=== PATIENT | male | born 1965 | race Caucasian/White ===

== ENCOUNTER 2022-05-12 17:50 | Emergency (ER) | payer MEDICAID, SELFPAY ==
[2022-05-12] VITALS (7 sets, daily range): BP systolic 95–199; BP diastolic 58–73; PULSE 75–99; RESP 15–19; TEMP 36.8; O2SAT 92–100; BMI 31.8
[2022-05-12] MEDS: 0.9% Normal Saline 1,000 ML 1000 ML IV (18:22)
[2022-05-12] MEDS: Ketorolac 15 MG/ML Vial IV (18:22)
[2022-05-12 18:26] LABS: Absolute Lymphocyte Count 1.78 X10^3/uL (0.83-4.51); Absolute Neutrophil Count 3.5 X10^3/uL (2.0-7.7); Basophil# 0.08 X10^3/uL; Basophil% 1.3 % (0-1); Eosinophil# 0.18 X10^3/uL; Eosinophils% 2.9 % (0-5); Hematocrit 43.3 % (40-54); Hemoglobin 14.5 g/dL (13.0-16.5); Lymphocyte # 1.78 X10^3/ul (0.83-4.51); Lymphocyte % 28.8 % (19-41); Mean Corp Hgb Conc 33.5 g/dL (32-36); Mean Corpuscular Volume 92.7 fL (80-94); Mean Platelet Vol. 9.2 fl (6.2-12.0); Monocyte# 0.64 X10^3/uL; Monocyte% 10.4 % (0-10); NRBC Flagged by Analyzer 0 % (0-5); Neutrophil # 3.45 X10^3/uL (2.7-7.7); Neutrophil % 55.8 % (47-70); Platelet Count 342 K/mm3 (150-450); RBC Distribution Width CV 11.9 % (11.6-14.6); RBC Distribution Width SD 40.6 fl (35.1-43.9); Red Blood Count 4.67 M/mm3 (4.6-6.2); White Blood Count 6.2 K/mm3 (4.4-11.0)
--- NOTE | 2022-05-12 18:29 | EX.ED.DYSGE1 ---
HPI History of Present Illness Chief Complaint: Dizziness Detail of Chief Complaint: Dizziness equates to lightheadedness Informant: patient Onset/Context/Timing Onset: Hours Context: Sudden Onset Timing: Continuous Quality: Hypotension Location: New antihypertensive meds Current Severity: Severe Maximum Severity: Severe Worsened by: Upright position Relieved by: Nothing Associated Symptoms Associated Symptoms: Nausea, diaphoresis Narrative Narrative: Patient presents by ambulance from doctor's office because of hypotension. Patient blood pressure meds were recently changed. He is presently on lisinopril. He does not know what medicine she was on prior. He attempted to look up his med list on my chart. Those meds have been deleted. Of note patient is on gabapentin, muscle relaxant and hydroxyzine. This may contribute to his hypotension. Patient denies fever, chills night sweats. Patient reports severe migraine headache. Review of outpatient records through [facility] indicates patient does not have migraine headaches. He has cluster headaches. He denies cough, shortness of breath or difficulty breathing. He does report nausea without vomiting or diarrhea. Denies black or maroon-colored stool. He denies urologic symptoms. Patient has a lesion is well-healed on his leg due to melanoma. He has a healing scar right inguinal area where lymph nodes were biopsied. Surgery was November 2021. Prior similar symptoms: No Recent Illness/Hospitalization: Yes PFSH PFSH Medical History Anxiety HTN (hypertension) Hx of testicular cancer Melanoma Home Medications ondansetron 4 mg disintegrating tablet 4 mg PO Q8H PRN PRN Nausea #10 tabs 01/20/ [Rx Last Taken Unknown] duloxetine 30 mg capsule,delayed release sprinkle 30 mg PO DAILY 05/12/22 [History Last Taken Unknown] gabapentin 300 mg capsule 300 mg PO TID 05/12/22 [History Last Taken Unknown] hydroxyzine pamoate 50 mg capsule 50 mg PO DAILY PRN ANXIETY 05/12/22 [History Last Taken Unknown] lisinopril 10 mg tablet 10 mg PO DAILY 05/12/22 [History Last Taken Unknown] methocarbamol 750 mg tablet 750 mg PO TID 05/12/22 [History Last Taken Unknown] prednisone 20 mg tablet 20 mg PO DAILY 05/12/22 [History Last Taken Unknown] Allergy/AdvReac Type Severity Reaction Status Date / Time No Known Allergies Allergy Verified 05/12/22 17:56 Social History (Updated 05/12/22 @ 18:[address] Abundio Lawson MD) household members: significant other Smoking Status: Never smoker alcohol intake: current alcohol intake frequency: a few times a week ROS ROS ED Constitutional Constitutional ED: Denies chills, fever(s), subjective, sweats or weight loss Eyes Eyes: Denies blurry vision, change in vision or diplopia ENT ENT ED: Denies ear pain, rhinorrhea or sore throat Cardiovascular Cardiovascular: Denies chest pain, orthopnea, palpitations, paroxysmal nocturnal dyspnea or racing heartbeat Respiratory/Chest Respiratory/Chest: Denies cough, dyspnea, dyspnea on exertion, orthopnea or paroxysmal nocturnal dyspnea Gastrointestinal Gastrointestinal: Reports nausea; Denies abdominal pain, diarrhea, melena or vomiting Genitourinary Genitourinary ED: Denies dysuria, hematuria or urinary frequency Musculoskeletal Musculoskeletal: Denies arthralgias, back pain, myalgias or neck pain Integumentary Denies rash Neurologic Neurologic: Reports headache(s) and weakness; Denies paresthesias Endocrine Endocrinology: Denies cold intolerance or heat intolerance Hematologic/Lymphatic Hematologic/Lymphatic: Reports systems reviewed and no addt'l complaints, except as documented EXAM Physical Exam Const Vital Signs: 05/12/22 17:51 05/12/22 17:56 05/12/22 18:30 Temperature 98.3 F Temperature Source Oral Pulse Rate 99 Respiratory Rate 18 Respiratory Effort Normal Non-Labored Blood Pressure 95/58 L 103/73 Blood Pressure Mean 70 83 Pulse Ox 95 Oxygen Delivery Method Room Air Oxygen Flow Rate (L/min) 05/12/22 19:00 05/12/22 20:13 05/12/22 21:00 Temperature Temperature Source Pulse Rate 75 82 89 Respiratory Rate 18 19 H 15 Respiratory Effort Blood Pressure 110/60 108/65 131/69 H Blood Pressure Mean 76 79 89 Pulse Ox 94 92 100 Oxygen Delivery Method Room Air Room Air Non-Rebreather Oxygen Flow Rate (L/min) 10 Positive well nourished and well developed General Appearance ED: well developed, NAD and pallor; Negative for cyanotic or diaphoretic HEENT Reports moist mucous membranes HEENT Narrative: Head is atraumatic normocephalic. Ears normal. TMs normal. Nares patent without discharge. Posterior pharynx out erythema or exudate. Mucosa slightly tacky. Eyes PERRL and EOMs intact bilaterally General Eye ED: Negative for pale conjunctiva or scleral icterus Neck no lymphadenopathy, supple and no JVD Resp normal respiratory effort and clear to auscultation bilaterally Cardio regular rate, regular rhythm, S1 normal heart sound, S2 normal heart sound and no murmurs GI normal to inspection, nondistended, normoactive bowel sounds, non-tender, non-distended and no masses; Negative for hepatosplenomegaly Back/Spine no CVA tenderness Lumbar Spine / Lower Back: lumbar spinal tenderness Extremity Negative for normal to inspection Extremity Narrative: Right lower extremity reveals prior incision site where melanoma was removed and biopsy site right inguinal area. Neuro oriented x3, CN's II-XII intact bilaterally and no sensory deficits noted Sensorium / Orientation: alert Psych mental status grossly normal Skin no rashes or lesions noted, no wounds and skin turgor normal Skin Narrative: Slightly diaphoretic. General Skin Exam: pallor; Negative for jaundice MDM MDM MDM Narrative Medical decision making narrative: Patient is hypotensive. Suspect this is due to change in blood pressure meds. We will need to review outside records. Based on review of [facility] patient has history of depression, chronic pain syndrome and generalized anxiety. He does have history of hypertension. He was recently prescribed lisinopril 10 mg. He has had several visits this month at multiple [facility] sites. We will obtain basic blood work to rule out anemia which is unlikely since his conjunctive is pink. Basic metabolic panel to assess renal function, CO2 anion gap. 1 L of normal saline was ordered. Will place on oxygen since she has history of cluster headaches and treat with Toradol. He denies history of renal disease. After reviewing outside labs his most recent creatinine was 1.36. If this was known prior to ordering the Toradol, I would not have ordered the Toradol. Especially since he is hypotensive. Lab Data Attestation: I reviewed the patient's lab results. Lab results narrative: CBC is unremarkable. Basic metabolic panel is marked for an elevated BUN and creatinine at 24 and 1.59. Creatinine is double prior lab result. This could be due to the lisinopril that he was recently placed on and raises concern for renal artery stenosis or the hypotension. The hypotension did respond to fluids. Labs: Laboratory Results - last 24 hr 05/12/22 05/12/22 05/12/22 18:13 18:13 18:13 WBC 6.2 RBC 4.67 Hgb 14.5 Hct 43.3 MCV 92.7 MCH 31.0 MCHC 33.5 RDW Std Deviation 40.6 RDW Coeff of Marlee 11.9 Plt Count 342 MPV 9.2 Immature Gran % (Auto) 0.800 Neut % (Auto) 55.8 Lymph % (Auto) 28.8 Randall % (Auto) 10.4 H Eos % (Auto) 2.9 Baso % (Auto) 1.3 H Absolute Neuts (auto) 3.5 Absolute Lymphs (auto) 1.78 Nucleated RBC % 0 Sodium 137 Potassium 4.2 Chloride 107 Carbon Dioxide 21.0 Anion Gap 9 BUN 24 H Creatinine 1.59 H Estim Creat Clear Calc 49.66 Est GFR (MDRD) Af Amer 59 L Est GFR (MDRD) Non-Af 48 L BUN/Creatinine Ratio 15.1 Glucose 104 Lactic Acid 2.0 Calcium 9.7 EKG Initial EKG: Attestation: I personally reviewed and interpreted this EKG as follows: Interpretation: Sinus Rhythm (Rate is 96. EKG is normal. TN interval is 146 ms. QRS durations 90 ms. QT durations 346 ms. Roscoe is normal. This is essentially unchanged from EKG that was obtained June 25, 2014) Treatment and Re-Evaluation :: Contacted Dr. Mcdermott's office [phone]. Unable to leave voicemail or contact her. We will have patient contact her. He has been instructed to hold the lisinopril. We will have patient contact his primary care physician. He has been instructed to hold his lisinopril. If his renal function does not improve will need further testing to determine if the cause was due to hypotension versus KENNY inhibitor, lisinopril Discharge Plan Triage Chief Complaint: Dizziness ED Provider: Abundio Lawson Dx/Rx/DC Orders Clinical Impression: Acute hypotension, Acute kidney injury, Atypical cluster headache, History of primary hypertension Instructions: ED Low Blood Pressure, All Causes, ED Headache, Cluster Prescriptions: No Action ondansetron 4 MG tablet 4 mg PO Q8H PRN PRN (Reason: Nausea) Qty: 10 0RF prednisone 20 mg Tablet 20 mg PO DAILY hydroxyzine pamoate 50 mg Capsule 50 mg PO DAILY PRN (Reason: ANXIETY) methocarbamol 750 mg Tablet 750 mg PO TID lisinopril 10 mg Tablet 10 mg PO DAILY gabapentin 300 mg Capsule 300 mg PO TID duloxetine 30 mg Capsule, Delayed Rel Sprinkle 30 mg PO DAILY Primary Care Provider: [facility] Doctor,Out of Referrals: [facility] Doctor,Out of [Primary Care Provider] - Activity Restrictions/Additional Instructions: 1. Hold your lisinopril 2. Contact Dr. Mcdermott in the morning for repeat blood work in 3 to 5 days and new blood pressure medicine 3. Tell Dr. Mcdermott your creatinine is 1.59. 4. If symptoms return return to the emergency department Disposition Disposition: Home, Self Care
[2022-05-12 18:42] LABS: Anion Gap 9 (5-15); BUN 24 mg/dL (7-18); BUN/Creat Ratio 15.1 RATIO (10-20); Calcium,Total 9.7 mg/dL (8.5-10.1); Chloride 107 mmol/L (98-107); Creatinine, Serum 1.59 mg/dL (0.70-1.30); EST Glomerular Filtration Rate 48 mL/min (>60); Est Glom Filt Rate - Afr Amer 59 mL/min (>60); Estimated Creatinine Clearance 49.66 ml/min; Glucose 104 mg/dL (74-106); Potassium 4.2 mmol/L (3.5-5.1); Sodium Level 137 mmol/L (136-145)
[2022-05-12 22:21] LABS: Reflex Lactate? Y
== END 2022-05-12 22:29 | disposition home or self-care (01) ==
PROVIDERS: Emergency Provider Emergency Medicine; Visit Provider Emergency Medicine
DX: G44.009 Cluster headache syndrome, unspecified, not intractable (principal); N17.9 Acute kidney failure, unspecified; I10 Essential (primary) hypertension; I95.9 Hypotension, unspecified; Z79.899 Other long term (current) drug therapy; Z79.52 Long term (current) use of systemic steroids
CPT/HCPCS: 80048; 83605; 85025; 93005; 96361; 96374; 99285; J7030; A4216

== ENCOUNTER 2022-12-08 18:23 | Emergency (ER) | payer MEDICAID, SELFPAY ==
[2022-12-08 18:24] VITALS: BP 137/90; PULSE 92; RESP 20; TEMP 36.7; O2SAT 98
[2022-12-08 18:43] VITALS: O2SAT 97
--- NOTE | 2022-12-08 19:23 | CT_ITS ---
INDICATION: trauma EXAMINATION: CT CERVICAL SPINE - CT Spine Cervical W/O Contrast Injection TECHNIQUE: Helically acquired images were obtained of the cervical spine. 2D reformatted images were reviewed. A radiation dose optimization technique was used for this scan. IV Contrast dosage and agent: None. RADIATION DOSAGE (If Supplied By Facility): CTDIvol = ( 35.67 ) mGy, DLP = ( 2798.90 ) mGycm COMPARISON: No relevant prior comparison study available FINDINGS: VERTEBRAE: No fracture or traumatic subluxation. No discrete lytic or blastic abnormality. Normal alignment. Normal craniocervical junction and cervicothoracic junction. DISCS and SPINAL CANAL: Disc heights are preserved. No critical stenosis. Small endplate osteophyte is throughout the cervical spine. On the right, there is at least moderate foraminal narrowing at C3-4 and C4-5. On the left, there is at least mild foraminal narrowing at C3-4. NECK SOFT TISSUES: No prevertebral soft tissue swelling. There is no cervical adenopathy. LUNG APICES: Clear. CT/Spine Cervical without Contras IMPRESSION: No evidence of acute cervical spinal fracture or traumatic malalignment. No suspicious osseous lesions. Electronically Signed: Wil Nguyen MD at 20:34 EDT ,
--- NOTE | 2022-12-08 19:23 | CT_ITS ---
INDICATION: trauma EXAMINATION: CT BRAIN - CT Head or Brain W/O Contrast Injection TECHNIQUE: Multiple axial images were obtained of the head without intravenous contrast. A radiation dose optimization technique was used for this scan. IV Contrast dosage and agent: None. RADIATION DOSAGE (If Supplied By Facility): CTDIvol = ( 35.67 ) mGy, DLP = ( 2798.90 ) mGycm COMPARISON: No relevant prior comparison study available FINDINGS: BRAIN PARENCHYMA: No intra- or extra-axial hemorrhage. No evidence of acute infarct. No intracranial mass or mass effect. There is preservation of the bronson/white matter interface. Posterior fossa structures are unremarkable. No parenchymal abnormality. CSF SPACES: No cerebral volume loss. No hydrocephalus. Basal cisterns are patent. CALVARIUM, SKULL BASE, PARANASAL SINUSES AND MASTOID AIR CELLS: The mastoid air cells and visualized paranasal sinuses are well aerated. The calvarium is intact. No discrete lytic or blastic abnormalities. ORBITS: Both globes, extraocular muscles, optic nerves and retrobulbar fat appear unremarkable. CT/Brain/Head without Contrast IMPRESSION: No acute intracranial finding. Electronically Signed: Wil Nguyen MD at 20:36 EDT ,
--- NOTE | 2022-12-08 19:23 | CT_ITS ---
INDICATION: trauma EXAMINATION: CT THORACIC SPINE - CT Spine Thoracic W/O Contrast Injection TECHNIQUE: Helically acquired images were obtained of the thoracic spine. 2D reformats were reviewed. A radiation dose optimization technique was used for this scan. IV Contrast dosage and agent: None. RADIATION DOSAGE (If Supplied By Facility): CTDIvol = ( 35.67 ) mGy, DLP = ( 2798.90 ) mGycm COMPARISON: No relevant prior comparison study available FINDINGS: VERTEBRAE: No fracture. Vertebral body heights maintained. No discrete lytic or blastic abnormality observed. VERTEBRAL ALIGNMENT: Unremarkable. There is preservation of the normal thoracic kyphosis. DISCS: Disc heights are preserved. Small endplate osteophyte is present throughout the thoracic spine. VISUALIZED THORAX: Calcified granuloma in the right lower lobe. Lungs otherwise clear. Calcified subcarinal lymph nodes. CT/Spine Thoracic without Contras IMPRESSION: * No evidence of acute thoracic spinal fracture or traumatic malalignment. * No suspicious osseous lesions. * Evidence of prior granulomatous disease. Electronically Signed: Wil Nguyen MD at 20:33 EDT ,
[2022-12-08] MEDS: Morphine 4 MG/ML Syringe IV (19:52)
[2022-12-08] MEDS: Ondansetron 4 MG/2 ML Vial IV (19:52)
[2022-12-08 19:55] VITALS: BMI 33.7
[2022-12-08 20:06] LABS: Absolute Lymphocyte Count 1.72 X10^3/uL (0.83-4.51); Absolute Neutrophil Count 4.9 X10^3/uL (2.0-7.7); Basophil# 0.09 X10^3/uL; Basophil% 1.2 % (0-1); Eosinophil# 0.27 X10^3/uL; Eosinophils% 3.5 % (0-5); Hematocrit 39.9 % (40-54); Hemoglobin 13.4 g/dL (13.0-16.5); Lymphocyte # 1.72 X10^3/ul (0.83-4.51); Mean Corp Hgb Conc 33.6 g/dL (32-36); Mean Corpuscular Volume 92.4 fL (80-94); Mean Platelet Vol. 9.2 fl (6.2-12.0); Monocyte# 0.74 X10^3/uL; Monocyte% 9.5 % (0-10); NRBC Flagged by Analyzer 0 % (0-5); Neutrophil # 4.92 X10^3/uL (2.7-7.7); Neutrophil % 62.9 % (47-70); Platelet Count 338 K/mm3 (150-450); RBC Distribution Width SD 40.8 fl (35.1-43.9); Red Blood Count 4.32 M/mm3 (4.6-6.2); White Blood Count 7.8 K/mm3 (4.4-11.0)
[2022-12-08 20:23] LABS: AST(SGOT) 18 U/L (15-37); Alanine Aminotransfer ALT/SGPT 28 U/L (16-61); Alkaline Phosphatase 58 U/L (45-117); Anion Gap 5 (5-15); BUN 17 mg/dL (7-18); BUN/Creat Ratio 17.1 RATIO (10-20); Calcium,Total 9.4 mg/dL (8.5-10.1); Chloride 109 mmol/L (98-107); EST Glomerular Filtration Rate 83 mL/min (>60); Est Glom Filt Rate - Afr Amer 100 mL/min (>60); Estimated Creatinine Clearance 78.03 ml/min; Globulin 4.1 g/dL (2.2-4.2); Glucose 103 mg/dL (74-106); Potassium 4.2 mmol/L (3.5-5.1); Protein, Total 8.1 g/dL (6.4-8.2); Sodium Level 140 mmol/L (136-145)
--- NOTE | 2022-12-08 21:35 | ED.RN ---
pt's s.o. requested ua. pt refused. aware
--- NOTE | 2022-12-08 22:11 | ED.VIS.BACK ---
HPI History of Present Illness Chief Complaint: Fall Narrative Narrative: 57-year-old male presenting with back pain. He has a history of back pain. He relates that about 2 weeks ago he had a fall in his camper. He states this was after mopping it and he slipped and fell on his back. He is complaining some upper back pain and some neck pain. He states that he has intermittent cramping in his arms and legs as well. He did hit his head but did not lose conscious. Is not on anticoagulation. He was seen at [facility] previously for this and they did not do any imaging. He states his pain is returned and is worse. No loss of bladder or bowel control. No saddle anesthesia. Patient is ambulatory. Patient states that the rest of his work-up at [facility] was cardiac related and all of this was negative. [facility] Medical History Anxiety HTN (hypertension) Hx of testicular cancer Melanoma Home Medications ondansetron 4 mg disintegrating tablet 4 mg PO Q8H PRN PRN Nausea #10 tabs 01/20/ [Rx Last Taken Unknown] duloxetine 30 mg capsule,delayed release sprinkle 30 mg PO DAILY 05/12/22 [History Last Taken Unknown] gabapentin 300 mg capsule 300 mg PO TID 05/12/22 [History Last Taken Unknown] hydroxyzine pamoate 50 mg capsule 50 mg PO DAILY PRN ANXIETY 05/12/22 [History Last Taken Unknown] lisinopril 10 mg tablet 10 mg PO DAILY 05/12/22 [History Last Taken Unknown] methocarbamol 750 mg tablet 750 mg PO TID 05/12/22 [History Last Taken Unknown] prednisone 20 mg tablet 20 mg PO DAILY 05/12/22 [History Last Taken Unknown] Allergy/AdvReac Type Severity Reaction Status Date / Time No Known Allergies Allergy Verified 12/08/22 18:24 Social History household members: significant other Smoking Status: Never smoker alcohol intake: current alcohol intake frequency: a few times a week ROS ROS ED Constitutional Constitutional ED: Denies chills, fever(s) or sweats Eyes Eyes: Denies blurry vision or change in vision ENT ENT ED: Denies ear pain or sore throat Cardiovascular Cardiovascular: Denies chest pain, palpitations or racing heartbeat Respiratory/Chest Respiratory/Chest: Denies cough, dyspnea or sputum Gastrointestinal Gastrointestinal: Denies abdominal pain, constipation, diarrhea, nausea or vomiting Genitourinary Genitourinary ED: Denies dysuria, hematuria or urinary frequency Musculoskeletal Musculoskeletal: Reports back pain and neck pain; Denies arthralgias or myalgias Integumentary Denies abscess, Abrasions or rash Neurologic Neurologic: Denies headache(s), paresthesias or weakness Psychiatric Psychiatric: Denies anxiety, depression, suicidal ideation or suicidal thoughts Endocrine Endocrinology: Denies polydipsia or polyuria EXAM Physical Exam Const Vital Signs: 12/08/22 18:24 12/08/22 18:43 Temperature 98.1 F Temperature Source Temporal Pulse Rate 92 Respiratory Rate 20 H Respiratory Effort Normal Non-Labored Respiratory Depth Normal Respiratory Pattern Normal Blood Pressure 137/90 H Blood Pressure Mean 105 Pulse Ox 98 97 Oxygen Delivery Method Room Air Room Air Positive well nourished General Appearance ED: NAD HEENT Reports moist mucous membranes Resp normal respiratory effort and clear to auscultation bilaterally Auscultation: Negative for rales, rhonchi or wheezes Cardio regular rate and regular rhythm GI normal to inspection, nondistended, normoactive bowel sounds Back/Spine Cervical Spine: cervical spine tenderness Cervical Spine Tenderness Details: C7 and T1 Thoracic Spine / Upper Back: paraspinal muscle tenderness Extremity normal to inspection Neuro oriented x3 and no sensory deficits noted Sensorium / Orientation: alert Motor Exam: strength 5/5 throughout Psych mental status grossly normal Skin no rashes or lesions noted and no wounds MDM MDM MDM Narrative Medical decision making narrative: Patient presenting with upper back pain. On examination he is tender about the level of the C7-T1. No obvious deformities. Patient's pain seems to radiate into the medial aspect of his left arm more than his right arm but does seem to be into his pinky fingers bilaterally. He states that he has pain with palpation of the right and left elbows but there is full range of motion. No evidence of bruising or rash. Compartments are soft. Radial pulses 2+. Sensation and motor intact. Given the patient's pain an IV line was established. Is given morphine and Zofran. Obtain basic lab work including CBC and CMP which were normal. Differential includes compression fracture, C-spine fracture, thoracic spine fracture, cervical radiculopathy, intracranial hemorrhage, skull fracture.. CT of the brain was obtained and is negative. CT cervical spine, thoracic spine are also negative for acute findings. Given this I will have the patient follow-up with orthopedics. Patient counseled on findings. He requests narcotic pain medication for home. He told me that his primary care provider had increased his Cymbalta to help him with his pain which makes me think that he has had some chronic pain. I looked in the medical record and I see that they have documented he increased his Cymbalta himself and then told him he was doing it. He also increased his gabapentin. He was recently seen at [facility] and had been prescribed tramadol after requesting this for pain. His medical record also shows chronic back pain, chronic pain, opioid dependence at this point I do not feel comfortable prescribing him narcotics for home. Patient does have muscle relaxers and states he has Zanaflex and Lidoderm patches. He requested oxycodone prior to discharge and this was given. Return precautions discussed. He will follow-up with his PCP in [place]. Impression: 1. Fall 2. Cervical strain 3. Thoracic strain Lab Data Attestation: I reviewed the patient's lab results. Labs: Laboratory Results - last 24 hr 12/08/22 19:57 WBC 7.8 RBC 4.32 L Hgb 13.4 Hct 39.9 L MCV 92.4 MCH 31.0 MCHC 33.6 RDW Std Deviation 40.8 RDW Coeff of Marlee 12.0 Plt Count 338 MPV 9.2 Immature Gran % (Auto) 0.900 Neut % (Auto) 62.9 Lymph % (Auto) 22.0 Starke % (Auto) 9.5 Eos % (Auto) 3.5 Baso % (Auto) 1.2 H Absolute Neuts (auto) 4.9 Absolute Lymphs (auto) 1.72 Nucleated RBC % 0 Sodium 140 Potassium 4.2 Chloride 109 H Carbon Dioxide 26.0 Anion Gap 5 BUN 17 Creatinine 1.00 Estim Creat Clear Calc 78.03 Est GFR (MDRD) Af Amer 100 Est GFR (MDRD) Non-Af 83 BUN/Creatinine Ratio 17.1 Glucose 103 Calcium 9.4 Total Bilirubin 0.20 AST 18 ALT 28 Alkaline Phosphatase 58 Total Protein 8.1 Albumin 4.0 Globulin 4.1 Albumin/Globulin Ratio 1.0 Radiography Diagnostic Testing: Clinical Impression(s) from Imaging Studies Brain CT 12/08/22 19:23 IMPRESSION: No acute intracranial finding. Electronically Signed: Wil Nguyen MD at 20:36 EDT , Cervical Spine CT 12/08/22 19:23 IMPRESSION: No evidence of acute cervical spinal fracture or traumatic malalignment. No suspicious osseous lesions. Electronically Signed: Wil Nguyen MD at 20:34 EDT , Thoracic Spine CT 12/08/22 19:23 IMPRESSION: * No evidence of acute thoracic spinal fracture or traumatic malalignment. * No suspicious osseous lesions. * Evidence of prior granulomatous disease. Electronically Signed: Wil Nguyen MD at 20:33 EDT , Discharge Plan Triage Chief Complaint: Fall ED Provider: Gabe Schulte Dx/Rx/DC Orders Instructions: ED Back Pain (Acute or Chronic), ED Radiculopathy, Cervical Prescriptions: No Action ondansetron 4 MG tablet 4 mg PO Q8H PRN PRN (Reason: Nausea) Qty: 10 0RF prednisone 20 mg Tablet 20 mg PO DAILY hydroxyzine pamoate 50 mg Capsule 50 mg PO DAILY PRN (Reason: ANXIETY) methocarbamol 750 mg Tablet 750 mg PO TID lisinopril 10 mg Tablet 10 mg PO DAILY gabapentin 300 mg Capsule 300 mg PO TID duloxetine 30 mg Capsule, Delayed Rel Sprinkle 30 mg PO DAILY Primary Care Provider: [facility] Doctor,Out of Referrals: [facility] Doctor,Out of [Primary Care Provider] - Disposition Disposition: Home, Self Care
[2022-12-08] MEDS: oxyCODONE 5 MG Tablet PO (22:43)
[2022-12-08 22:44] VITALS: BP 96/54; RESP 18
== END 2022-12-08 22:52 | disposition home or self-care (01) ==
PROVIDERS: Emergency Provider Student in an Organized Health Care Education/Training Program; Visit Provider Student in an Organized Health Care Education/Training Program
DX: S16.1XXA Strain of muscle, fascia and tendon at neck level, initial encounter (principal); F11.20 Opioid dependence, uncomplicated; M79.602 Pain in left arm; G89.29 Other chronic pain; I10 Essential (primary) hypertension; S29.019A Strain of muscle and tendon of unspecified wall of thorax, initial encounter; W01.0XXA Fall on same level from slipping, tripping and stumbling without subsequent striking against object, initial encounter
CPT/HCPCS: 70450; 72125; 72128; 80053; 85025; 96374; 96375; 99282; J2405

== ENCOUNTER 2023-01-05 16:46 | Emergency (ER) | payer MEDICAID, SELFPAY ==
[2023-01-05 16:47] VITALS: BP 162/97; PULSE 95; RESP 17; TEMP 36.4; O2SAT 98; BMI 34.3
--- NOTE | 2023-01-05 17:41 | EDS_ITS ---
HPI HPI - Fall History of Present Illness Chief Complaint: Fall PFSH PFSH Medical History (Updated 01/05/23 @ 17:41 by Kellee Fishman) Anxiety Fall HTN (hypertension) Hx of testicular cancer Melanoma Home Medications ondansetron 4 mg disintegrating tablet 4 mg PO Q8H PRN PRN Nausea #10 tabs 01/20/15 [Rx Last Taken Unknown] duloxetine 30 mg capsule,delayed release sprinkle 60 mg PO DAILY 05/12/22 [History Last Taken Unknown] gabapentin 300 mg capsule 300 mg PO TID 05/12/22 [History Last Taken Unknown] lisinopril 10 mg tablet 20 mg PO DAILY 05/12/22 [History Last Taken Unknown] naloxone 4 mg/actuation nasal spray intranasal 01/05/23 [History Last Taken Unknown] Allergy/AdvReac Type Severity Reaction Status Date / Time No Known Allergies Allergy Verified 12/08/22 18:24 Social History household members: significant other Smoking Status: Never smoker alcohol intake: current alcohol intake frequency: a few times a week EXAM Physical Exam Const Vital Signs: 01/05/23 16:47 01/05/23 17:41 01/05/23 20:54 Temperature 97.5 F L Temperature Source Temporal Pulse Rate 95 Respiratory Rate 17 Respiratory Effort Normal Non-Labored Respiratory Depth Normal Respiratory Pattern Normal Blood Pressure 162/97 H 148/101 H Blood Pressure Mean 118 116 Pulse Ox 98 Oxygen Delivery Method Room Air MDM MDM MDM Narrative Medical decision making narrative: HISTORY OF PRESENT ILLNESS: 57-year-old male here for frequent falls. Notes he seen numerous doctors recently for multiple falls. States his last fall was Wednesday, 2 days ago. States he did hit his head. States he experiences pain in his right arm, back and right leg. He further states he has had months of lightheadedness upon standing. Denies any chest pain, shortness of breath. The patient denies recent surgery in the last 4 weeks or immobilization in the last 3 days, denies previous diagnosis of DVT or PE, hemoptysis, unilateral leg swelling or malignancy with treatment the last 6 months or palliative. No estrogen use noted. Does note hitting his head during one of the falls. Denies taking blood thinners. Denies any focal numbness or weakness. He does not abdominal pain as well. No vomiting, melena, hematochezia. REVIEW OF SYSTEMS: Pertinent positives: Head trauma, right arm, back and right leg pain Pertinent negatives: Focal deficits PHYSICAL EXAM: Nursing triage notes reviewed, Vital signs reviewed Primary Survey Airway: Intact Breathing: Bilateral breath sounds Circulation: Palpable bilateral femorals, Palpable bilateral radial, Palpable bilateral DP and Palpable bilateral PT Disability / Spine precautions GCS Score: Eye Openin Verbal Response: 5 Motor Response: 6 Secondary Survey Constitutional: Please see MDM Head: Atraumatic, Midface stable, NO jaw malocclusion, No Cephalohematoma, and No Lacerations noted Eye: Pupils equal round and reactive to light, Extraocular muscles intact and No periorbital ecchymosis or stepoff, no evidence of entrapment ENT: Oropharynx clear, no lacerations, no hemotympanum, no raccoon eyes or means sign Cervical spine / Neck: No cervical spine bony tenderness, crepitance, or stepoff deformity Trachea midline Lungs: Clear to auscultation, No asymmetric rise and No crepitus, no flail chest Cardiac: Regular rate and rhythm and No murmurs Abdomen: Soft, Nontender and No rebound Pelvis: Pelvis stable to compression : No evidence of genital injury Back: No midline bony tenderness to thoracic/lumbar/sacral spines Neuro: At baseline, intact strength and sensation in bilateral upper and lower extremities. 2+ patellar reflexes bilaterally. Extremities: NO gross Deformities Psych: Normal affect Nursing triage notes reviewed, Vital signs reviewed MEDICAL DECISION MAKING: Chief Complaint: Fall External records reviewed: Seen recently for similar complaints in November 2022 imaging reviewed: CT scan of the thoracic spine shows no evidence of thoracic spinal fracture or malalignment. CT of the cervical spine shows no acute traumatic injuries. CT scan of the head showed no evidence of intracranial normality Factors affecting care: hypertension, posterior headaches Social determinants of health: none History obtained from others: none Consults: none [facility] Narrative: Was hemodynamically stable, afebrile, nontoxic-appearing. Abdominal exam without obvious herniation, masses or peritoneal signs. I considered the following differential diagnosis: Arrhythmia, anemia, electrolyte disturbance, pneumonia ALL IMAGES (IF OBTAINED) HAVE BEEN PERSONALLY REVIEWED AND INTERPRETED BY MYSELF. EKG with normal sinus rhythm, normal axis, normal intervals, no STEMI High-sensitivity troponin is negative, no evidence of myocardial ischemia CBC without leukocytosis to suggest systemic inflammation, severe anemia, no thrombocytopenia. BMP without evidence of significant electrolyte abnormalities, no anion gap, no acute kidney injury. LFTs show no evidence of hepatobiliary pathology. CT scan of the head shows no evidence of intracranial normality CT scan lumbar spine shows evidence of bony fracture I have personally reviewed the patient's chest x-ray. Chest x-ray is unremarkable for pulmonary edema, pneumothorax, pneumonia or focal cardiopulmonary abnormality. X-ray of the right femur was read interpreted myself shows no evidence of obvious bony fracture or dislocation. X-ray of the humerus interpreted by myself shows no evidence of bony fracture CT scan abdomen pelvis shows fat-containing inguinal hernia. There is no white count there is no fever there is overlying skin changes low suspicion for acute incarceration at this time. Given outpatient general surgery follow-up. The synthesis of the patient's history, physical exam, labs/images suggest no acute intracranial abnormality, no acute bony abnormality, no metabolic or cardiovascular precipitating cause of the patient's lightheadedness upon standing. The patient is suffering orthostasis of unknown origin however there is no acute life or limb threatening pathology hat can be identified here in the ED. Encourage increase fluid intake and PCP, General surgery follow-up for further outpatient evaluation. The patient and/or family, caregivers express understanding. The patient and/or family, caregivers agrees with the plan. Shared decision making: I will have a discussion with the patient and or visitors regarding risk/benefits of further testing or admission. They will be made aware of of the risk/benefits inherent in this decision they will be given the opportunity to voice understanding. Total critical care time today provided was at least 0 minutes. This excludes separately billable procedures. Critical care time (if documented) is secondary to the patient having high probability of clinically significant/life threatening deterioration in the patient's condition which required my urgent i ntervention. Impression: 1. Frequent falls 2. Orthostasis Dispo: Discharge Lab Data Labs: Laboratory Results - last 24 hr 01/05/23 18:20 WBC 8.4 RBC 4.45 L Hgb 13.7 Hct 41.2 MCV 92.6 MCH 30.8 MCHC 33.3 RDW Std Deviation 41.8 RDW Coeff of Marlee 12.4 Plt Count 353 MPV 9.4 Immature Gran % (Auto) 1.100 H Neut % (Auto) 65.3 Lymph % (Auto) 20.7 [place] % (Auto) 8.1 Eos % (Auto) 3.7 Baso % (Auto) 1.1 H Absolute Neuts (auto) 5.5 Absolute Lymphs (auto) 1.74 Nucleated RBC % 0 Sodium 138 Potassium 4.1 Chloride 110 H Carbon Dioxide 22.0 Anion Gap 6 BUN 21 H Creatinine 1.13 Estim Creat Clear Calc 69.06 Est GFR (MDRD) Af Amer 87 Est GFR (MDRD) Non-Af 72 BUN/Creatinine Ratio 18.6 Glucose 106 Calcium 9.3 Total Bilirubin 0.30 Direct Bilirubin 0.08 AST 24 ALT 44 Alkaline Phosphatase 66 Troponin I High Sens < 3 L Total Protein 8.3 H Albumin 4.0 Globulin 4.3 H Radiography Diagnostic Testing: Clinical Impression(s) from Imaging Studies Abdomen/Pelvis CT 01/05/23 18:03 IMPRESSION: Small right inguinal fat-containing hernia with inflammatory changes which could indicate incarceration. No other acute abnormalities. Hepatic steatosis. Electronically Signed: Lanre Huerta MD at 20:01 EST Reading Location ID and State: [employer] [facility] [employer] Tel , Service support , Brain CT 01/05/23 18:03 IMPRESSION: No acute intracranial abnormality. Electronically Signed: Lanre Huerta MD at 19:29 EST Reading Location ID and State: [employer] [facility] [employer] Tel , Service support , Lumbar Spine CT 01/05/23 18:06 IMPRESSION: No evidence of acute lumbar spinal fracture or spondylolisthesis. Electronically Signed: Lanre Huerta MD at 19:34 EST Reading Location ID and State: [employer] [facility] [employer] Tel , Service support , Chest X-Ray 01/05/23 19:10 IMPRESSION: No acute radiographic abnormalities. Electronically Signed: Lanre Huerta MD at 19:47 EST Reading Location ID and State: [employer] [facility] [employer] Tel , Service support , Femur X-Ray 01/05/23 19:10 IMPRESSION: No acute radiographic abnormalities. Electronically Signed: Lanre Huerta MD at 19:54 EST , Humerus X-Ray 01/05/23 19:10 IMPRESSION: No acute radiographic abnormalities. Electronically Signed: Lanre Huerta MD at 19:47 EST , Discharge Plan Triage Chief Complaint: Fall ED Provider: Pio Sainz Dx/Rx/DC Orders Instructions: ED FALL-from [id number] Prescriptions: No Action ondansetron 4 MG tablet 4 mg PO Q8H PRN PRN (Reason: Nausea) Qty: 10 0RF lisinopril 10 mg Tablet 20 mg PO DAILY gabapentin 300 mg Capsule 300 mg PO TID duloxetine 30 mg Capsule, Delayed Rel Sprinkle 60 mg PO DAILY naloxone 4 mg/actuation spray,non-aerosol INTRANASAL Patient Comments: ADMINISTER A SINGLE SPRAY INTRANASALLY INTO ONE NOSTRIL. CALL 911. MAY REPEAT X 1. Stand Alone Forms: ED Work / School Excuse Primary Care Provider: Kelli Holman Referrals: Kenn Luna MD [Med Staff - Active Staff] - Alexa Conklin MD [Med Staff - Learning Manager] - Activity Restrictions/Additional Instructions: Thank you for trusting us with your care today! Please take Tylenol (2 pills, 650 mg), ibuprofen (2 pills, 400 mg) every 6 hours as needed for pain and fever control. Please return to the emergency department if your symptoms change or worsen. Please follow with your primary care physician for further outpatient evaluation and management. Disposition Disposition: Home, Self Care Discharge Date/Time: 01/05/23 20:55
--- NOTE | 2023-01-05 18:03 | CT_ITS ---
EXAMINATION : Head CT w/out contrast HISTORY : fall, head trauma COMPARISON : None. TECHNIQUE : Multiple contiguous axial images were obtained from the skull base to the vertex without intravenous contrast. A radiation dose optimization technique was used for this scan. FINDINGS : The ventricles and sulci are normal in size. There is no evidence for acute intracranial hemorrhage, mass effect, or midline shift. There is no extra-axial fluid collection. There is normal goodman-white differentiation, without CT evidence of acute ischemia or infarct. The skull base and calvarium are unremarkable. The orbits are unremarkable. The paranasal sinuses are clear. The mastoid air cells are well-aerated. The soft tissues are unremarkable. CT/Brain/Head without Contrast IMPRESSION: No acute intracranial abnormality. Electronically Signed: Lanre Huerta MD at 19:29 EST ,
--- NOTE | 2023-01-05 18:03 | CT_ITS ---
INDICATION: lower abdominal pain after fall EXAMINATION: CT Abdomen And Pelvis W/O Contrast Injection TECHNIQUE: Helically acquired images were obtained of the abdomen and pelvis without the use of IV contrast. A radiation dose optimization technique was used for this scan. Oral contrast: None. COMPARISON: None FINDINGS: Evaluation of the solid organs and vascular structures is limited without intravenous contrast. Visualized lung bases: Unremarkable Liver: Diffusely hypodense consistent with fatty liver. Gallbladder: Unremarkable Spleen: Unremarkable Pancreas: Unremarkable Adrenal Glands: Unremarkable Kidneys: Unremarkable Vasculature: Unremarkable GI Tract: Unremarkable Lymphadenopathy: None Peritoneum: No ascites. Bladder: Unremarkable Reproductive organs: Unremarkable Bones/Soft tissues: Mild scattered degenerative changes of the visualized spine. Small right inguinal fat-containing hernia with fat stranding. CT/Abdomen/Pelvis without Cont IMPRESSION: Small right inguinal fat-containing hernia with inflammatory changes which could indicate incarceration. No other acute abnormalities. Hepatic steatosis. Electronically Signed: Lanre Huerta MD at 20:01 EST ,
--- NOTE | 2023-01-05 18:04 | EKG12_ITS ---
Test Reason : DYSRHYTHMIA Blood Pressure : / mmHG Vent. Rate : 092 BPM Atrial Rate : 092 BPM P-R Int : 144 ms QRS Dur : 084 ms QT Int : 356 ms P-R-T Axes : 012 023 041 degrees QTc Int : 440 ms Normal sinus rhythm Normal ECG Confirmed by GENESIS MCKEON, TODD ([id number]), editor greeting card DAFNE OWENS ([id number]) on 01/07/2023 9:21:49 AM Referred By: Confirmed By:TODD HURTADO MD
--- NOTE | 2023-01-05 18:06 | CT_ITS ---
INDICATION: back pain EXAMINATION: CT LUMBAR SPINE - CT Spine Lumbar W/O Contrast Injection TECHNIQUE: Helically acquired images were obtained of the lumbar spine. 2D reformats were reviewed. A radiation dose optimization technique was used for this scan. IV Contrast dosage and agent: None. COMPARISON: None. FINDINGS: VERTEBRAE: No fracture or traumatic subluxation. No discrete lytic or blastic abnormality observed. Normal alignment. DISCS and SPINAL CANAL: Disc heights are preserved. No critical stenosis. VISUALIZED ABDOMEN: Visualized abdominal aorta is not dilated. There is no retroperitoneal adenopathy. CT/Spine Lumbar without Contrast IMPRESSION: No evidence of acute lumbar spinal fracture or spondylolisthesis. Electronically Signed: Lanre Huerta MD at 19:34 EST ,
[2023-01-05 18:27] LABS: Absolute Lymphocyte Count 1.74 X10^3/uL (0.83-4.51); Absolute Neutrophil Count 5.5 X10^3/uL (2.0-7.7); Basophil# 0.09 X10^3/uL; Basophil% 1.1 % (0-1); Eosinophil# 0.31 X10^3/uL; Eosinophils% 3.7 % (0-5); Hematocrit 41.2 % (40-54); Hemoglobin 13.7 g/dL (13.0-16.5); Lymphocyte # 1.74 X10^3/ul (0.83-4.51); Lymphocyte % 20.7 % (19-41); Mean Corp Hgb Conc 33.3 g/dL (32-36); Mean Corpuscular Hgb 30.8 pg (27.0-32.0); Mean Corpuscular Volume 92.6 fL (80-94); Mean Platelet Vol. 9.4 fl (6.2-12.0); Monocyte# 0.68 X10^3/uL; Monocyte% 8.1 % (0-10); NRBC Flagged by Analyzer 0 % (0-5); Neutrophil # 5.49 X10^3/uL (2.7-7.7); Neutrophil % 65.3 % (47-70); Platelet Count 353 K/mm3 (150-450); RBC Distribution Width CV 12.4 % (11.6-14.6); RBC Distribution Width SD 41.8 fl (35.1-43.9); Red Blood Count 4.45 M/mm3 (4.6-6.2); White Blood Count 8.4 K/mm3 (4.4-11.0)
[2023-01-05] MEDS: 0.9% Normal Saline (1000mL) 1,000 ML 1000 ML IV (18:42)
[2023-01-05 19:05] LABS: AST(SGOT) 24 U/L (15-37); Alanine Aminotransfer ALT/SGPT 44 U/L (16-61); Alkaline Phosphatase 66 U/L (45-117); Anion Gap 6 (5-15); BUN 21 mg/dL (7-18); BUN/Creat Ratio 18.6 RATIO (10-20); Bilirubin, Direct 0.08 mg/dL (0.00-0.30); Calcium,Total 9.3 mg/dL (8.5-10.1); Chloride 110 mmol/L (98-107); Creatinine, Serum 1.13 mg/dL (0.70-1.30); EST Glomerular Filtration Rate 72 mL/min (>60); Est Glom Filt Rate - Afr Amer 87 mL/min (>60); Estimated Creatinine Clearance 69.06 ml/min; Globulin 4.3 g/dL (2.2-4.2); Glucose 106 mg/dL (74-106); Potassium 4.1 mmol/L (3.5-5.1); Protein, Total 8.3 g/dL (6.4-8.2); Sodium Level 138 mmol/L (136-145); Troponin-I HS < 3 pg/mL (3.0-78.0)
--- NOTE | 2023-01-05 19:10 | RAD_ITS ---
INDICATION: lightheadedness, cough EXAMINATION/TECHNIQUE: X-RAY - XR Chest 1 View COMPARISON: None. FINDINGS: The lungs are clear. The cardiomediastinal silhouette is unremarkable. No pleural effusion or pneumothorax. No acute osseous abnormalities. RAD/Chest 1 View (Portable) IMPRESSION: No acute radiographic abnormalities. Electronically Signed: Lanre Huerta MD at 19:47 EST ,
--- NOTE | 2023-01-05 19:10 | RAD_ITS ---
INDICATION: leg pain EXAMINATION/TECHNIQUE: X-RAY - RIGHT XR Femur Min 2 Views COMPARISON: None. FINDINGS: No acute fracture or malalignment. No blastic or lytic lesions. Mild degenerative changes. The soft tissues are unremarkable. RAD/Femur Min 2 Views IMPRESSION: No acute radiographic abnormalities. Electronically Signed: Lanre Huerta MD at 19:54 EST ,
--- NOTE | 2023-01-05 19:10 | RAD_ITS ---
INDICATION: arm pain after fall EXAMINATION/TECHNIQUE: X-RAY - RIGHT XR Humerus Min 2 Views COMPARISON: None. FINDINGS: No acute fracture or malalignment. No blastic or lytic lesions. No degenerative changes are seen. The soft tissues are unremarkable. RAD/Humerus min 2 Views IMPRESSION: No acute radiographic abnormalities. Electronically Signed: Lanre Huerta MD at 19:47 EST ,
[2023-01-05] MEDS: Acetaminophen 325 MG Tablet PO (19:24)
[2023-01-05] MEDS: Ketorolac 15 MG/ML Vial IV (20:34)
[2023-01-05 20:54] VITALS: BP 148/101
== END 2023-01-05 20:55 | disposition home or self-care (01) ==
PROVIDERS: Emergency Provider Emergency Medicine; PCP Nurse Anesthetist, Certified Registered; Visit Provider Emergency Medicine
DX: R29.6 Repeated falls (principal); I10 Essential (primary) hypertension; Z91.81 History of falling; M79.601 Pain in right arm; M79.604 Pain in right leg; M54.9 Dorsalgia, unspecified; R51.9 Headache, unspecified; R42 Dizziness and giddiness
CPT/HCPCS: 70450; 71045; 72131; 73060; 73552; 74176; 80048; 80076; 84484; 85025; 93005; 96361; 96374; 99284; J7030; A4216

== ENCOUNTER 2023-04-04 13:16 | Emergency (ER) | payer MEDICAID, SELFPAY ==
[2023-04-04 13:17] VITALS: PULSE 109; RESP 16; TEMP 36.2; O2SAT 98
--- NOTE | 2023-04-04 13:28 | RAD_ITS ---
STUDY: X-RAY - LUMBAR SPINE REASON FOR EXAM: Male, 57 years old. Pain TECHNIQUE: 2 view(s) of the lumbar spine were obtained. COMPARISON: None FINDINGS: Normal lumbar lordosis. There is no substantial scoliosis. There is a normal alignment of the vertebrae. Normal vertebral bodies and endplates. Normal disc space heights. There is multilevel facet hypertrophy in the lower lumbar spine. The soft tissue structures are unremarkable. RAD/Lumbar Spine 2 or 3 Views IMPRESSION: No acute fracture or subluxation. Electronically Signed: Shaggy Tsang MD at 14:20 EST ,
--- NOTE | 2023-04-04 13:28 | RAD_ITS ---
STUDY: X-RAY - RIGHT SHOULDER REASON FOR EXAM: Male, 57 years old. Trauma TECHNIQUE: 3 view(s) of the shoulder. COMPARISON: None. FINDINGS: Normal glenohumeral articulation. Normal acromioclavicular joint. Normal acromion. Normal humeral head and visualized proximal humerus. The soft tissue structures are unremarkable. Normal visualized pulmonary apex. RAD/Shoulder min 2 Views IMPRESSION: Normal x-ray examination of the shoulder. Electronically Signed: Shaggy Tsang MD at 14:21 EST ,
--- NOTE | 2023-04-04 13:30 | ED.VIS.FALL ---
HPI HPI - Fall History of Present Illness Chief Complaint: Fall Narrative Narrative: 57-year-old male past medical history of arthritis, states he has been falling frequently, states he was recently diagnosed with an L4 compression fracture which has been there for a while . He is supposed to see a surgeon in [facility] next week. He states that on , 4 days ago, he fell on 2 steps to his cam bur. He fell onto his right shoulder and is having mild right shoulder pain, but states that his low back pain is increasing. He crawled into bed, and is continuing his muscle relaxers and pain medications that he currently takes for chronic pain. Additionally, he relays a history remotely of cancer and states he had leftover Percocet . He had been having them and taking them, but now has run out of his narcotic pain medication. He states that he was informed on last Wednesday, approximately 7 days ago, that he had an L4 fracture. He called his surgeon and was told that nothing could be written for him until he is seen on Wednesday, 3 days from now. Patient denies any fevers or chills, no loss of bowel or bladder, but states the pain in his back is getting worse, and he is having shoulder pain that is worse with movement. As far as hand dominance is concerned, he states he is ambidextrous but mostly uses his left hand. While he states he may have hit his head, he denies loss of consciousness. [facility] Medical History Anxiety Fall HTN (hypertension) Hx of testicular cancer Melanoma Home Medications ondansetron 4 mg disintegrating tablet 4 mg PO Q8H PRN PRN Nausea #10 tabs 01/20/15 [Rx Last Taken Unknown] duloxetine 30 mg capsule,delayed release sprinkle 60 mg PO DAILY 05/12/22 [History Last Taken Unknown] gabapentin 300 mg capsule 300 mg PO TID 05/12/22 [History Last Taken Unknown] lisinopril 10 mg tablet 20 mg PO DAILY 05/12/22 [History Last Taken Unknown] naloxone 4 mg/actuation nasal spray intranasal 01/05/23 [History Last Taken Unknown] oxycodone-acetaminophen 5 mg-325 mg tablet (Percocet) 1 tab PO Q8H PRN pain 3 days #10 tabs 04/04/23 [Rx Last Taken Unknown] Allergy/AdvReac Type Severity Reaction Status Date / Time No Known Allergies Allergy Verified 04/04/23 13:19 Social History household members: significant other Smoking Status: Never smoker alcohol intake: current alcohol intake frequency: a few times a week ROS ROS ED ROS Narrative Constitutional: No fever, no chills. HEENT: No sore throat. No neck pain. No loss of vision. No rhinorrhea. Cardiovascular: No chest pain. No palpitations. No pedal edema. Respiratory: No cough, no shortness of breath. Abdominal: No abdominal pain. No nausea. No vomiting. Genitourinary: No dysuria. No hematuria. Musculoskeletal: No myalgias. Right shoulder pain worse with movement, low back pain. Neurologic: No headaches. No dizziness. No lightheadedness. Skin: No rash. No change in color. Psychiatric: No depression. No anxiety. EXAM Physical Exam Narrative Exam Narrative: Afebrile. Vital signs noted. HEENT: Normocephalic. Atraumatic. PERRL, EOMI. Neck soft and supple. No point tenderness or step off. Cardiovascular: Regular rate and rhythm. No murmurs, rubs, or gallops appreciated. Respiratory: No tachypnea. Lungs clear to auscultation bilaterally. Gastrointestinal: Abdomen soft, nontender, with normoactive bowel sounds. No rebound or guarding. Neurological: Awake. Alert. Nonfocal, nonlateralizing. Ambulatory in ED. Able to transfer to and from cot slowly. Skin: No rash. Normal color. No pallor. Musculoskeletal: No pedal edema. Full range of motion extremities. No clinical dislocation right shoulder. No clavicular tenderness. No crepitance. Palpable radial pulse, right. No vertebral point tenderness or bony step-off of the lumbar spine. Const Vital Signs: 04/04/23 13:17 04/04/23 13:22 Temperature 97.2 F L Temperature Source Temporal Pulse Rate 109 H Respiratory Rate 16 Respiratory Effort Normal Non-Labored Respiratory Depth Normal Respiratory Pattern Normal Pulse Ox 98 Oxygen Delivery Method Room Air Room Air MDM MDM MDM Narrative Medical decision making narrative: I reviewed the patient's records that he brought in he has rotator cuff problems at baseline. Concern is for shoulder sprain on the right versus fracture. There is no clinical evidence of dislocation. Regarding his low back pain, he may have aggravated his known L4 compression fracture as he states that his physician told him that had been there for a while. I have low suspicion for cauda equina as the clinical history and physical does not support this. He was given 1 Percocet tablet here in the emergency department. X-rays will be obtained of the right shoulder and of the lumbar spine to look for new injury/fracture. I interpreted his x-rays of his lumbar spine and see no evidence of a compression fracture at L4, no acute fracture. I reviewed the radiology report which confirms my independent interpretation. Additionally, I reviewed and interpreted his right shoulder x-ray and see no evidence of fracture or dislocation, and reviewed the radiology report which also confirms my independent interpretation. Upon repeat examination, he states he is feeling improved. I will write him a prescription for 10 Percocet tablets to take over the next 3 days until he can follow-up with his physician for his back/back surgeon. Disposition is discharged home in stable condition. History & Record Review Discussion w/independent historian: Patient Additional record(s) reviewed:: Prior ED visit and Other ([facility] report) Radiography Diagnostic Testing: Clinical Impression(s) from Imaging Studies Lumbar Spine X-Ray 04/04/23 13:28 IMPRESSION: No acute fracture or subluxation. Electronically Signed: Shaggy Tsang MD at 14:20 EST Reading Location ID and State: [employer] [facility] [employer] Tel , Service support , Shoulder X-Ray 04/04/23 13:28 IMPRESSION: Normal x-ray examination of the shoulder. Electronically Signed: Shaggy Tsang MD at 14:21 EST Reading Location ID and State: [id number] / [employer] Tel , Service support , Discharge Plan Triage Chief Complaint: Fall ED Provider: Abhijeet García Dx/Rx/DC Orders Clinical Impression: Acute exacerbation of chronic low back pain, Pain in right shoulder, Fall Instructions: ED Back Pain (Acute or Chronic), ED Mechanical Fall, ED Pain Management: Chronic Prescriptions: New oxycodone-acetaminophen [Percocet] 5-325 mg tablet 1 tab PO Q8H PRN (Reason: pain) 3 Days Qty: 10 0RF No Action ondansetron 4 MG tablet 4 mg PO Q8H PRN PRN (Reason: Nausea) Qty: 10 0RF lisinopril 10 mg Tablet 20 mg PO DAILY gabapentin 300 mg Capsule 300 mg PO TID duloxetine 30 mg Capsule, Delayed Rel Sprinkle 60 mg PO DAILY naloxone 4 mg/actuation spray,non-aerosol INTRANASAL Patient Comments: ADMINISTER A SINGLE SPRAY INTRANASALLY INTO ONE NOSTRIL. CALL 911. JUNE REPEAT X 1. Primary Care Provider: AG WILLIAM Referrals: Kelli Holman [Med Staff - Adv Practice Prof] - 3-5 Days if not improving Activity Restrictions/Additional Instructions: Follow-up with your physicians for your back pain on Wednesday as scheduled. Disposition Disposition: Home, Self Care
[2023-04-04] MEDS: Oxycodone/Apap 5/325 Tablet PO (13:56)
== END 2023-04-04 14:51 | disposition home or self-care (01) ==
PROVIDERS: Emergency Provider Emergency Medicine; Visit Provider Emergency Medicine
DX: M54.50 Low back pain, unspecified (principal); G89.29 Other chronic pain; M25.511 Pain in right shoulder; I10 Essential (primary) hypertension; W19.XXXA Unspecified fall, initial encounter
CPT/HCPCS: 72100; 73030; 99282

== ENCOUNTER 2023-05-10 21:12 | Emergency (ER) | payer MEDICAID, SELFPAY ==
[2023-05-10 21:13] VITALS: BP 121/84; PULSE 93; RESP 16; TEMP 36.4; O2SAT 99; BMI 35.2
--- NOTE | 2023-05-10 23:13 | ED.VIS.BACK ---
HPI History of Present Illness Chief Complaint: Back Informant: patient Narrative Narrative: Patient states he has had back pain for years, he states he has a fracture of L4 (although recent x-rays do not show that including CT from the end of 2022), last week and a half things been worse. He had a couple falls that may have made it worse but he did not fall onto his back. For a week and a half he has had a little bit of trouble getting urine out but overall he has had no incontinence of urine or stool and feels if he is able to get into position he is able to go without difficulty for the most part. He denies any saddle anesthesia. He has sciatica symptoms that radiate down the right lower extremity but that is not new. Prior similar symptoms: Yes and With Prior Back Pain [facility] Medical History Anxiety Carpal tunnel syndrome Compound fracture Fall HTN (hypertension) Hx of testicular cancer Melanoma Tendonitis Torn rotator cuff Home Medications ondansetron 4 mg disintegrating tablet 4 mg PO Q8H PRN PRN Nausea #10 tabs 01/20/ [Rx Last Taken Unknown] gabapentin 300 mg capsule 300 mg PO TID 05/12/22 [History Last Taken Unknown] lisinopril 10 mg tablet 20 mg PO DAILY 05/12/22 [History Last Taken Unknown] duloxetine 30 mg capsule,delayed release 30 mg PO BID 05/10/23 [History Last Taken Unknown] ketoconazole 2 % topical cream 1 applic topical PRN 05/10/23 [History Last Taken Unknown] oxycodone 5 mg tablet 5 mg PO Q6H PRN PRN pain 05/10/23 [History Last Taken Unknown] oxycodone-acetaminophen 5 mg-325 mg tablet 1 tab PO Q6H PRN PRN Pain 1 day #2 TABLETS 05/10/23 [Rx Last Taken Unknown] quetiapine 200 mg tablet 200 mg PO QHS PRN PRN sleep 05/10/23 [History Last Taken Unknown] sumatriptan succinate 6 mg/0.5 mL subcutaneous pen injector 6 mg subcut PRN headache 05/10/23 [History Last Taken Unknown] Allergy/AdvReac Type Severity Reaction Status Date / Time No Known Allergies Allergy Verified 05/10/23 21:13 Social History household members: significant other Smoking Status: Never smoker alcohol intake: current alcohol intake frequency: a few times a week ROS ROS ED Constitutional Constitutional ED: Denies chills or fever(s) Gastrointestinal Gastrointestinal: Denies abdominal pain, constipation, fecal incontinence, nausea or vomiting Genitourinary Genitourinary ED: Reports other Details: no urinary retention ; Denies abdominal discomfort or urinary incontinence Musculoskeletal Musculoskeletal: Reports as per HPI and back pain; Denies neck pain Integumentary Denies rash or wounds Neurologic Neurologic: Reports paresthesias RLE; Denies headache(s) or weakness EXAM Physical Exam Const Vital Signs: 05/10/23 21:13 Temperature 97.6 F L Temperature Source Temporal Pulse Rate 93 Respiratory Rate 16 Blood Pressure 121/84 H Blood Pressure Mean 96 Pulse Ox 99 Positive well nourished and well developed General Appearance ED: well developed and NAD HEENT Negative for trauma or tenderness Eyes PERRL and EOMs intact bilaterally Neck full ROM and supple GI normal to inspection, nondistended, normoactive bowel sounds, soft to palpation and non-tender Back/Spine normal to inspection Lumbar Spine / Lower Back: ROM limited, paraspinal muscle tenderness and straight leg raise positive right at 80 degrees (While sitting); Negative for lumbar spinal tenderness or straight leg raise positive - left Extremity normal to inspection, full ROM and no pedal edema Neuro oriented x3 and no sensory deficits noted Sensorium / Orientation: alert Motor Exam: strength 5/5 throughout and clonus absent Deep Tendon Reflexes: Rt Patellar (L4): 2+, Lt Patellar (L4): 2+, Rt Ankle (S1): 2+ and Lt Ankle (S1): 2+ Deep Tendon Reflexes Back: Rt Patellar (L4): 2+, Lt Patellar (L4): 2+, Rt Ankle (S1): 2+ and Lt Ankle (S1): 2+ Plantar Reflex: Downgoing: bilateral Psych mental status grossly normal and thought process normal Skin no rashes or lesions noted and no wounds MDM MDM MDM Narrative Medical decision making narrative: Patient looking for relief tonight he states he has an appointment tomorrow to see his doctor in [place] where he anticipates getting something the last longer. He does asking for something to help him get through and may be a prescription for 2 pills which I will do since he has not had any narcotic prescriptions in [place] according to his [place] report in the past month or more. He is following up, which I advised as soon as possible but I do not think given his symptoms he has acute cauda equina syndrome or needs an emergent MRI. Discharge Plan Triage Chief Complaint: Back ED Provider: Landry Kuo Dx/Rx/DC Orders Clinical Impression: Acute exacerbation of chronic low back pain Instructions: ED Back Pain (Acute or Chronic) Prescriptions: New oxycodone-acetaminophen [oxycodone-acetaminophen] 5-325 mg tablet 1 tab PO Q6H PRN PRN (Reason: Pain) 1 Days Qty: 2 0RF No Action ondansetron 4 MG tablet 4 mg PO Q8H PRN PRN (Reason: Nausea) Qty: 10 0RF lisinopril 10 mg Tablet 20 mg PO DAILY gabapentin 300 mg Capsule 300 mg PO TID duloxetine 30 mg capsule,delayed release(DR/EC) 30 mg PO BID ketoconazole 2 % cream 1 applic topical PRN oxycodone 5 mg tablet 5 mg PO Q6H PRN PRN (Reason: pain) quetiapine 200 mg tablet 200 mg PO QHS PRN PRN (Reason: sleep) sumatriptan succinate 6 mg/0.5 mL pen injector 6 mg subcut PRN Primary Care Provider: AG WILLIAM Referrals: NOT,DEFINED [Non-Staff] - Doctor,Your [Non-Staff] - Keep [facility] appointment Disposition Disposition: Home, Self Care
[2023-05-10] MEDS: morphine 10 MG/ML Syringe 4 MG IM (23:19)
[2023-05-10 23:22] VITALS: BP 122/88; PULSE 70; RESP 16; TEMP 36.2; O2SAT 95
== END 2023-05-10 23:31 | disposition home or self-care (01) ==
PROVIDERS: Emergency Provider Emergency Medicine; Visit Provider Emergency Medicine
DX: M54.50 Low back pain, unspecified (principal); I10 Essential (primary) hypertension; R20.2 Paresthesia of skin; G89.29 Other chronic pain; Z79.899 Other long term (current) drug therapy
CPT/HCPCS: 99282

== ENCOUNTER 2023-05-20 18:53 | Emergency (ER) | payer MEDICAID, SELFPAY ==
[2023-05-20 18:54] VITALS: BP 129/87; PULSE 87; PULSE 89; RESP 16; TEMP 36.2; O2SAT 95; BMI 33.7
--- NOTE | 2023-05-20 20:42 | EX.ED.GENINJ ---
HPI History of Present Illness Chief Complaint: Head Injury Informant: patient Onset/Context/Timing Onset: Today Quality of Pain: Sharp and Throbbing Location: Head, back Worsened by: Breathing Relieved by: Nothing Associated Symptoms Associated Symptoms: Positive for Parasthesias, Weakness and Loss of consciousness; Negative for Loss of function, Inability to ambulate or Amnesia Length of loss of consciousness: Very brief Narrative Narrative: Patient presents after a fall that occurred today. Patient states he had a syncopal episode today. Patient states he has been having syncopal episodes recently. Patient has been evaluated for these. Patient states that he fell forward today and hit his frontal scalp. Patient states he has worsening back pain after the fall. Patient states he has a history of chronic back pain. Patient describes his pain as sharp and throbbing. Patient states it is worse with taking a deep breath and moving. Patient admits to some tingling and weakness down his legs. Patient states he was unconscious briefly today. Patient states he woke up quickly. Patient admits to some nausea and vomiting. [facility] Medical History (Updated 05/20/23 @ 23:[address] Tay Johnson, ) Anxiety Carpal tunnel syndrome Compound fracture Degenerative disc disease, thoracic Fall HTN (hypertension) Hx of testicular cancer Melanoma Tendonitis Torn rotator cuff Home Medications ondansetron 4 mg disintegrating tablet 4 mg PO Q8H PRN PRN Nausea #10 tabs 01/20/15 [Rx Last Taken Unknown] gabapentin 300 mg capsule 300 mg PO TID 05/12/22 [History Last Taken Unknown] lisinopril 10 mg tablet 20 mg PO DAILY 05/12/22 [History Last Taken Unknown] duloxetine 30 mg capsule,delayed release 30 mg PO BID 05/10/23 [History Last Taken Unknown] ketoconazole 2 % topical cream 1 applic topical PRN 05/10/23 [History Last Taken Unknown] oxycodone 5 mg tablet 5 mg PO Q6H PRN PRN pain 05/10/23 [History Last Taken Unknown] oxycodone-acetaminophen 5 mg-325 mg tablet 1 tab PO Q6H PRN PRN Pain 1 day #2 TABLETS 05/10/23 [Rx Last Taken Unknown] quetiapine 200 mg tablet 200 mg PO QHS PRN PRN sleep 05/10/23 [History Last Taken Unknown] sumatriptan succinate 6 mg/0.5 mL subcutaneous pen injector 6 mg subcut PRN headache 05/10/23 [History Last Taken Unknown] hydrocodone-acetaminophen 5-325mg 5mg-325mg 1 tab PO Q6H PRN PRN Pain 3 days #10 TABLETS 05/20/23 [Rx Last Taken Unknown] Allergy/AdvReac Type Severity Reaction Status Date / Time No Known Allergies Allergy Verified 05/10/23 21:13 Surgical History (Updated 05/20/23 @ 21:[address] Tay Johnson, DO) History of carpal tunnel surgery Social History household members: significant other Smoking Status: Never smoker alcohol intake: current alcohol intake frequency: a few times a week ROS ROS ED Constitutional Constitutional ED: Denies chills or fever(s) Eyes Eyes: Denies blurry vision or change in vision ENT ENT ED: Denies rhinorrhea or sore throat Cardiovascular Cardiovascular: Denies chest pain or palpitations Respiratory/Chest Respiratory/Chest: Reports dyspnea; Denies cough Gastrointestinal Gastrointestinal: Reports nausea and vomiting Genitourinary Genitourinary ED: Denies dysuria or hematuria Musculoskeletal Musculoskeletal: Reports back pain; Denies neck pain Integumentary Denies abscess or rash Neurologic Neurologic: Reports headache(s); Denies weakness Allergic/Immunologic Allergic/Immunologic ED: Denies mouth swelling or urticaria EXAM Physical Exam Const Vital Signs: 05/20/23 18:54 05/20/23 18:54 05/20/23 19:54 Temperature 97.2 F L 97.2 F L Temperature Source Temporal Temporal Pulse Rate 87 89 Respiratory Rate 16 16 Respiratory Effort Normal Non-Labored Respiratory Depth Normal Respiratory Pattern Normal Blood Pressure 129/87 H 129/87 H Blood Pressure Mean 101 101 Pulse Ox 95 95 Oxygen Delivery Method Room Air Room Air Room Air 05/20/23 20:54 Temperature Temperature Source Pulse Rate 79 Respiratory Rate 18 Respiratory Effort Respiratory Depth Respiratory Pattern Blood Pressure 167/110 H Blood Pressure Mean 129 Pulse Ox 99 Oxygen Delivery Method Room Air Positive well nourished and well developed General Appearance ED: well developed and NAD HEENT HEENT Narrative: There are superficial abrasions over the left forehead. There is no active bleeding noted. There is no bony crepitance or step-off noted. There is no gapping of the wound margins. trauma Eyes PERRL and EOMs intact bilaterally Neck full ROM Resp normal respiratory effort and clear to auscultation bilaterally Cardio regular rhythm Rate: regular rate GI non-tender and non-distended Palpation: soft Back/Spine Back/Spine Narrative: There is tenderness over the lumbar spine and paraspinal muscles. Range of motion was limited in all motions of the lumbar spine secondary to pain. Strength is 5/5 bilateral in the lower extremities. There are no sensory deficits noted. Extremity normal to inspection and full ROM Neuro oriented x3, CN's II-XII intact bilaterally, moves all extremities, no focal motor deficits and no sensory deficits noted [place] Coma Scale: document GCS findings Spontaneous Obeys Commands Oriented 15 Sensorium / Orientation: alert Motor Exam: strength 5/5 throughout Psych mental status grossly normal and thought process normal MDM MDM MDM Narrative Medical decision making narrative: Differential diagnosis includes cardiac dysrhythmia, cardiac ischemia, electrolyte abnormality, vasovagal syncope, closed head injury, and intracranial bleeding. CT scan of the brain will be obtained to assess for intracranial bleeding and stroke. EKG will be obtained to assess for cardiac dysrhythmia and cardiac ischemia. Chest x-ray will be obtained to assess for pneumonia, pneumothorax, and widened mediastinum. X-rays of the lumbar spine will be obtained to assess for lumbar fracture. CBC will be obtained to assess for leukocytosis and anemia. Basic metabolic profile will be obtained to assess for electrolyte abnormality and renal function. High-sensitivity troponin will be obtained to assess for cardiac ischemia. COVID-19, influenza, and RSV PCR will be obtained for viral illness. Lab Data Attestation: I reviewed the patient's lab results. Lab results narrative: And was within normal limits. Basic metabolic profile was reviewed and was essentially within normal limits. High-sensitivity troponin was reviewed and was normal. COVID-19 PCR was reviewed and was negative. Influenza PCR was reviewed and was negative for influenza A and influenza B. RSV PCR was reviewed and was negative. Labs: Laboratory Results - last 24 hr 05/20/23 21:20 WBC 5.6 RBC 4.43 L Hgb 13.8 Hct 40.9 MCV 92.3 MCH 31.2 MCHC 33.7 RDW Std Deviation 39.3 RDW Coeff of [place]lee 11.6 Plt Count 300 MPV 9.3 Immature Gran % (Auto) 0.200 Neut % (Auto) 53.5 Lymph % (Auto) 32.3 [place] % (Auto) 8.6 Eos % (Auto) 4.3 Baso % (Auto) 1.1 H Absolute Neuts (auto) 3.0 Absolute Lymphs (auto) 1.80 Nucleated RBC % 0 Sodium 140 Potassium 3.9 Chloride 110 H Carbon Dioxide 26.0 Anion Gap 4 L BUN 22 H Creatinine 1.00 Estim Creat Clear Calc 96.00 Est GFR (MDRD) Af Amer 100 Est GFR (MDRD) Non-Af 82 BUN/Creatinine Ratio 22.0 H Glucose 105 Calcium 10.0 Troponin I High Sens < 3 L Radiography Diagnostic Testing: Clinical Impression(s) from Imaging Studies Brain CT 05/20/23 21:42 IMPRESSION: Normal unenhanced CT scan of the brain. Electronically Signed: Shaggy Tsang MD at 22:02 EDT Reading Location ID and State: [place] [facility] , Service support , Chest X-Ray 05/20/23 21:47 IMPRESSION: Normal x-ray examination of the chest. Electronically Signed: Shaggy Tsang MD at 22:05 EDT Reading Location ID and State: [place] [facility] , Service support , Lumbar Spine X-Ray 05/20/23 21:47 IMPRESSION: Degenerative changes of the spine, as detailed above. Electronically Signed: Shaggy Tsang MD at 22:06 EDT Reading Location ID and State: [place] [facility] , Service support , CT scan of the brain was obtained. There is no acute intracranial abnormality. This was interpreted by the radiologist and was also independently reviewed by myself. Portable 1 view chest x-ray was obtained. On my independent interpretation, lung styles are clear. There is normal cardiac silhouette. Bony thorax is normal. There is no acute process noted. Radiologist also interpreted the x-ray and agrees. X-rays of the lumbar spine were obtained. There are 2 views. On my independent interpretation, there is no acute fracture or dislocation noted. There is no spondylolisthesis noted. There are some degenerative changes noted. Radiologist also interpreted the x-rays and agrees. EKG Initial EKG: Attestation: I personally reviewed and interpreted this EKG as follows: Interpretation: Sinus Rhythm (76) and No Acute Injury Pattern Comments: EKG was obtained. On my independent interpretation, it showed a normal sinus rhythm with a rate of 76. FL interval, QRS interval, and QTc intervals were all normal. [place] was normal. There are no acute ST or T wave changes. Prior EKG tracings: available for review Prior: Unchanged (01/05/2023) Treatment and Re-Evaluation Narrative: Patient was given IV fluids, morphine, and Zofran. Patient is feeling better on reevaluation. Patient was advised of his findings. Patient was instructed to drink plenty of fluids. Patient was given a prescription for a short course of [place]. Patient was instructed to follow-up with his primary care physician in 5 to 7 days. Patient was instructed return if worse in any way. Patient understood and was agreeable with the plan. All questions were answered. Discharge Plan Triage Chief Complaint: Head Injury ED Provider: Tay Johnson Dx/Rx/DC Orders Clinical Impression: Syncope and collapse, Acute low back pain Instructions: ED Back Pain (Acute or Chronic), ED Fainting, Uncertain Cause Prescriptions: New hydrocodone-acetaminophen [hydrocodone-acetaminophen] 5-325 mg tablet 1 tab PO Q6H PRN PRN (Reason: Pain) 3 Days Qty: 10 0RF No Action ondansetron 4 MG tablet 4 mg PO Q8H PRN PRN (Reason: Nausea) Qty: 10 0RF lisinopril 10 mg Tablet 20 mg PO DAILY gabapentin 300 mg Capsule 300 mg PO TID duloxetine 30 mg capsule,delayed release(DR/EC) 30 mg PO BID ketoconazole 2 % cream 1 applic topical PRN oxycodone 5 mg tablet 5 mg PO Q6H PRN PRN (Reason: pain) quetiapine 200 mg tablet 200 mg PO QHS PRN PRN (Reason: sleep) sumatriptan succinate 6 mg/0.5 mL pen injector 6 mg subcut PRN oxycodone-acetaminophen [oxycodone-acetaminophen] 5-325 mg tablet 1 tab PO Q6H PRN PRN (Reason: Pain) 1 Days Qty: 2 0RF Primary Care Provider: AG WILLIAM Referrals: AG WILLIAM [Other] - 3-5 Days Disposition Disposition: Home, Self Care
[2023-05-20 20:54] VITALS: BP 167/110; PULSE 79; RESP 18; O2SAT 99
--- NOTE | 2023-05-20 20:58 | EKG12_ITS ---
Test Reason : DYSRHYTHMIA Blood Pressure : / mmHG Vent. Rate : 076 BPM Atrial Rate : 076 BPM P-R Int : 160 ms QRS Dur : 086 ms QT Int : 372 ms P-R-T Axes : 028 024 034 degrees QTc Int : 418 ms Normal sinus rhythm Normal ECG Confirmed by Jorge Daugherty ([id number]), staff editor DAFNE OWENS ([id number]) on 05/21/2023 11:06:08 AM Referred By: Confirmed By:Jorge Daugherty
[2023-05-20 21:35] LABS: Basophil# 0.06 X10^3/uL; Basophil% 1.1 % (0-1); Eosinophil# 0.24 X10^3/uL; Eosinophils% 4.3 % (0-5); Hematocrit 40.9 % (40-54); Hemoglobin 13.8 g/dL (13.0-16.5); Lymphocyte % 32.3 % (19-41); Mean Corp Hgb Conc 33.7 g/dL (32-36); Mean Corpuscular Hgb 31.2 pg (27.0-32.0); Mean Corpuscular Volume 92.3 fL (80-94); Mean Platelet Vol. 9.3 fl (6.2-12.0); Monocyte# 0.48 X10^3/uL; Monocyte% 8.6 % (0-10); NRBC Flagged by Analyzer 0 % (0-5); Neutrophil # 2.98 X10^3/uL (2.7-7.7); Neutrophil % 53.5 % (47-70); Platelet Count 300 K/mm3 (150-450); RBC Distribution Width CV 11.6 % (11.6-14.6); RBC Distribution Width SD 39.3 fl (35.1-43.9); Red Blood Count 4.43 M/mm3 (4.6-6.2); White Blood Count 5.6 K/mm3 (4.4-11.0)
[2023-05-20] MEDS: Morphine 4 MG/ML Syringe IV (21:37)
[2023-05-20] MEDS: 0.9% Normal Saline (1000mL) 1,000 ML 1000 ML IV (21:37)
[2023-05-20] MEDS: Ondansetron 4 MG/2 ML Vial IV (21:38)
--- NOTE | 2023-05-20 21:42 | CT_ITS ---
STUDY: CT BRAIN WITHOUT CONTRAST REASON FOR EXAM: Male, 57 years old. Head injury RADIATION DOSAGE (If Supplied By Facility): CTDIvol = ( 44.99 ) mGy, DLP = ( 798.92 ) mGycm TECHNIQUE: Transaxial CT imaging of the brain was performed without administration of intravenous contrast material. Individualized dose optimization techniques were used for this CT. COMPARISON: 01/05/2023 FINDINGS: Normal soft tissue structures. Normal calvarium. Normal size ventricles and extra-axial spaces for the patient''s age. Normal white matter tracts of the cerebral hemispheres. Normal basal ganglia and thalami. Normal brainstem. Normal cerebellum. There is no intracranial hemorrhage. There are no findings of an acute ischemic infarction. Normal visualized paranasal sinuses. CT/Brain/Head without Contrast IMPRESSION: Normal unenhanced CT scan of the brain. Electronically Signed: Shaggy Tsang MD at 22:02 EDT ,
--- NOTE | 2023-05-20 21:47 | RAD_ITS ---
STUDY: X-RAY - LUMBAR SPINE REASON FOR EXAM: Male, 57 years old. Injury/Pain TECHNIQUE: 2 view(s) of the lumbar spine were obtained. COMPARISON: 04/04/2023 FINDINGS: Normal lumbar lordosis. There is no substantial scoliosis. There is a normal alignment of the vertebrae. Normal vertebral bodies and endplates. Normal disc space heights. There is multilevel facet hypertrophy in the lower lumbar spine. The soft tissue structures are unremarkable. RAD/Lumbar Spine 2 or 3 Views IMPRESSION: Degenerative changes of the spine, as detailed above. Electronically Signed: Shaggy Tsang MD at 22:06 EDT ,
--- NOTE | 2023-05-20 21:47 | RAD_ITS ---
STUDY: X-RAY CHEST REASON FOR EXAM: Male, 57 years old. Syncope TECHNIQUE: Single AP portable view of the chest. COMPARISON: 12/28/2022 FINDINGS: The lungs are clear and expanded. There is no demonstrated pleural abnormality. Normal size heart. Normal mediastinum and graham. Normal visualized pulmonary arteries. Normal visualized aortic arch and descending thoracic aorta. Normal visualized thoracic spine. Normal visualized ribs, clavicles, and shoulders. There is no demonstrated abnormality of the visualized soft tissue structures of the upper abdomen. RAD/Chest 1 View (Portable) IMPRESSION: Normal x-ray examination of the chest. Electronically Signed: Shaggy Tsang MD at 22:05 EDT ,
[2023-05-20 21:54] LABS: Anion Gap 4 (5-15); BUN 22 mg/dL (7-18); Chloride 110 mmol/L (98-107); EST Glomerular Filtration Rate 82 mL/min (>60); Est Glom Filt Rate - Afr Amer 100 mL/min (>60); Glucose 105 mg/dL (74-106); Potassium 3.9 mmol/L (3.5-5.1); Sodium Level 140 mmol/L (136-145); Troponin-I HS < 3 pg/mL (3.0-78.0)
[2023-05-20 22:00] VITALS: BP 135/76; PULSE 69; RESP 16; O2SAT 97
[2023-05-21] VITALS: BP 139/86; PULSE 76; RESP 18; TEMP 36.6; O2SAT 99
== END 2023-05-21 00:07 | disposition home or self-care (01) ==
PROVIDERS: Emergency Provider Emergency Medicine; Visit Provider Emergency Medicine
DX: R55 Syncope and collapse (principal); S00.81XA Abrasion of other part of head, initial encounter; W01.10XA Fall on same level from slipping, tripping and stumbling with subsequent striking against unspecified object, initial encounter; M54.50 Low back pain, unspecified; G89.29 Other chronic pain; R29.898 Other symptoms and signs involving the musculoskeletal system; Z11.52 Encounter for screening for COVID-19; R11.2 Nausea with vomiting, unspecified; I10 Essential (primary) hypertension; Z79.899 Other long term (current) drug therapy
CPT/HCPCS: 70450; 71045; 72100; 80048; 84484; 85025; 87631; 93005; 96361; 96374; 96375; 99283; J7030; J2405

== ENCOUNTER 2023-06-08 14:56 | Emergency (ER) | payer MEDICAID, SELFPAY ==
[2023-06-08 14:57] VITALS: BP 139/111; PULSE 84; RESP 18; TEMP 36.4; O2SAT 100
--- NOTE | 2023-06-08 16:35 | RAD_ITS ---
STUDY: X-RAY - THORACIC SPINE REASON FOR EXAM: Male, 57 years old. Injury/Pain -- Pain in the proximity of TE 8 through 10 TECHNIQUE: 3 view(s) of the thoracic spine were obtained. COMPARISON: None. FINDINGS: Normal kyphosis of the thoracic spine. There is no substantial scoliosis. Normal thoracic vertebrae and endplates. Normal disc space heights. The soft tissue structures are unremarkable. RAD/Thoracic Spine 3 Views IMPRESSION: Normal x-ray examination of the thoracic spine. Electronically Signed: Emeterio Pelletier MD at 17:25 EDT ,
--- NOTE | 2023-06-08 17:08 | ED.VIS.BACK ---
HPI History of Present Illness Chief Complaint: Back Detail of Chief Complaint: Mid central back pain. Informant: patient Onset/Context/Timing Onset: Days Context: Sudden Onset Chronic pain exacerbated by: Patient felt a pop when he was moving. Injury: - (No history of injury) Timing: Continuous and Waxes and wanes Quality: Dull and Aching Location: Thoracic (T8-10) Current Severity: Mild Maximum Severity: Severe Worsened by: improves with Movement and Bending Relieved by: Nothing Associated Symptoms Associated Symptoms: - (Patient denies bowel bladder dysfunction. Patient denies radiation of pain to the chest.); Negative for Numbness, Tingling, Radiation to Right Leg, Radiation to Left Leg, Abdominal Pain, Dysuria, Unable to Ambulate, Unable to Transfer, Urinary Retention, Urinary Incontinence, Constipation or Fecal Incontinence Narrative Narrative: Patient is a 57-year-old gentleman with history of osteoarthritis. He has history of melanoma right lower extremity diagnosed 1.5 years ago. He is having a contrast study to evaluate his back pain. His pain is gotten worse recently. He denies cardiac or respiratory symptoms. He denies fever, chills night sweats. He denies weight gain or weight loss. He is on gabapentin, opiate analgesic with no improvement. There is no history of trauma. He has had no recent dental procedure or any type of surgical procedure. He has not had recent injection of his back. Prior similar symptoms: Yes Recent Illness/Hospitalization: No PFSH PFS Medical History Anxiety Carpal tunnel syndrome Compound fracture Degenerative disc disease, thoracic Fall HTN (hypertension) Hx of testicular cancer Melanoma Tendonitis Torn rotator cuff Home Medications ondansetron 4 mg disintegrating tablet 4 mg PO Q8H PRN PRN Nausea #10 tabs 01/20/15 [Rx Last Taken Unknown] gabapentin 300 mg capsule 300 mg PO TID 05/12/22 [History Last Taken Unknown] lisinopril 10 mg tablet 20 mg PO DAILY 05/12/22 [History Last Taken Unknown] duloxetine 30 mg capsule,delayed release 30 mg PO BID 05/10/23 [History Last Taken Unknown] ketoconazole 2 % topical cream 1 applic topical PRN 05/10/23 [History Last Taken Unknown] oxycodone 5 mg tablet 5 mg PO Q6H PRN PRN pain 05/10/23 [History Last Taken Unknown] oxycodone-acetaminophen 5 mg-325 mg tablet 1 tab PO Q6H PRN PRN Pain 1 day #2 TABLETS 05/10/23 [Rx Last Taken Unknown] quetiapine 200 mg tablet 200 mg PO QHS PRN PRN sleep 05/10/23 [History Last Taken Unknown] sumatriptan succinate 6 mg/0.5 mL subcutaneous pen injector 6 mg subcut PRN headache 05/10/23 [History Last Taken Unknown] hydrocodone-acetaminophen 5-325mg 5mg-325mg 1 tab PO Q6H PRN PRN Pain 3 days #10 TABLETS 05/20/23 [Rx Last Taken Unknown] Allergy/AdvReac Type Severity Reaction Status Date / Time No Known Allergies Allergy Verified 06/08/23 15:00 Surgical History History of carpal tunnel surgery Social History household members: significant other Smoking Status: Never smoker alcohol intake: current alcohol intake frequency: a few times a week ROS ROS ED Constitutional Constitutional ED: Denies chills, fever(s), subjective, sweats or weight loss Eyes Eyes: Denies blurry vision or change in vision Cardiovascular Cardiovascular: Denies chest pain or palpitations Respiratory/Chest Respiratory/Chest: Denies dyspnea, dyspnea on exertion or sputum Gastrointestinal Gastrointestinal: Denies abdominal pain, constipation, nausea or vomiting Musculoskeletal Musculoskeletal: Reports back pain; Denies arthralgias, myalgias or neck pain Integumentary Denies abscess or rash Neurologic Neurologic: Denies headache(s), paresthesias or weakness Hematologic/Lymphatic Hematologic/Lymphatic: Denies easy bleeding or easy bruising EXAM Physical Exam Const Vital Signs: 06/08/23 14:57 Temperature 97.6 F L Temperature Source Temporal Pulse Rate 84 Respiratory Rate 18 Blood Pressure 139/111 H Blood Pressure Mean 120 Pulse Ox 100 Oxygen Delivery Method Room Air Positive well nourished, well developed and obese General Appearance ED: well developed and NAD Nutritional Appearance: obese HEENT Reports moist mucous membranes HEENT Narrative: Head is atraumatic normocephalic. Ears normal. Eyes PERRL and EOMs intact bilaterally General Eye ED: Negative for pale conjunctiva or scleral icterus Neck no lymphadenopathy, supple and no JVD Resp normal respiratory effort and clear to auscultation bilaterally Cardio regular rate, regular rhythm, S1 normal heart sound, S2 normal heart sound and no murmurs GI normal to inspection, nondistended, normoactive bowel sounds, soft to palpation, non-tender, non-distended and no masses GI Narrative: There is no palpable pulsatile mass. There is no abdominal bruit. Back/Spine normal to inspection; Negative for no thoracic nor lumbar tenderness Back/Spine Narrative: There is pain outpatient over T7-10 thoracic spinous process. Cervical Spine: Negative for cervical spine tenderness and Negative for paracervical muscle tenderness Extremity Extremity Narrative: Patient is wearing cock-up splints right and left. Axillary, median, radial and ulnar function intact. Radial pulses 2+. Neuro oriented x3 and no sensory deficits noted Sensorium / Orientation: alert Psych mental status grossly normal Skin no rashes or lesions noted and no wounds MDM MDM MDM Narrative Medical decision making narrative: With history of melanoma x-ray was obtained to determine if there is any evidence of pathologic fracture lytic or blastic lesions. Patient was medicated with IV Toradol. Radiography Chest X-Ray - ED: 2 View and Read by ED Physician (Bili reviewed interpreted by me at 1708 as negative for any acute process. There is degenerative changes noted and mild kyphoscoliosis.) Treatment and Re-Evaluation Narrative: Patient reports no improvement. Patient asked if I could prescribe Percocet. States he has been given Percocet in the past. Patient was informed that he needs to contact his pain management physician who sent him here. At this point Percocet is not indicated. Of note patient's physician is from out of town. Discharge Plan Triage Chief Complaint: Back ED Provider: Abundio Lawson Dx/Rx/DC Orders Clinical Impression: Degenerative disc disease, thoracic, Degenerative disc disease, lumbar, Acute midline thoracic back pain Instructions: ED Degenerative Disk Disease Prescriptions: No Action ondansetron 4 MG tablet 4 mg PO Q8H PRN PRN (Reason: Nausea) Qty: 10 0RF lisinopril 10 mg Tablet 20 mg PO DAILY gabapentin 300 mg Capsule 300 mg PO TID duloxetine 30 mg capsule,delayed release(DR/EC) 30 mg PO BID ketoconazole 2 % cream 1 applic topical PRN oxycodone 5 mg tablet 5 mg PO Q6H PRN PRN (Reason: pain) quetiapine 200 mg tablet 200 mg PO QHS PRN PRN (Reason: sleep) sumatriptan succinate 6 mg/0.5 mL pen injector 6 mg subcut PRN oxycodone-acetaminophen [oxycodone-acetaminophen] 5-325 mg tablet 1 tab PO Q6H PRN PRN (Reason: Pain) 1 Days Qty: 2 0RF hydrocodone-acetaminophen [hydrocodone-acetaminophen] 5-325 mg tablet 1 tab PO Q6H PRN PRN (Reason: Pain) 3 Days Qty: 10 0RF Primary Care Provider: [facility] Doctor,Out of Referrals: [facility] Doctor,Out of [Primary Care Provider] - [facility] appointment Disposition Disposition: Home, Self Care
[2023-06-08] MEDS: Ketorolac 30 MG/ML Syringe 15 MG IV (17:10)
[2023-06-08 17:23] VITALS: BP 137/66; PULSE 81; RESP 16; TEMP 36.4; O2SAT 99
== END 2023-06-08 17:24 | disposition home or self-care (01) ==
PROVIDERS: Emergency Provider Emergency Medicine; Visit Provider Emergency Medicine
DX: M51.36 Other intervertebral disc degeneration, lumbar region (principal); G89.29 Other chronic pain; M51.34 Other intervertebral disc degeneration, thoracic region; I10 Essential (primary) hypertension; E66.9 Obesity, unspecified
CPT/HCPCS: 72072; 96374; 99283; A4216

== ENCOUNTER 2024-04-13 11:48 | Emergency (ER) | payer MEDICAID, SELFPAY ==
[2024-04-13 11:49] VITALS: BP 147/95; PULSE 77; RESP 22; TEMP 36.6; O2SAT 96; BMI 37.0
--- NOTE | 2024-04-13 12:01 | RAD_ITS ---
PROCEDURE: CHEST 1 VIEW (PORTABLE) REASON FOR EXAM: Chest pain TECHNIQUE: Frontal view of the chest. COMPARISON: 05/20/2023 FINDINGS: The cardiac and mediastinal contours are normal. The lungs are clear. RAD/Chest 1 View (Portable) IMPRESSION: NEGATIVE SINGLE VIEW OF THE CHEST. Reading Location: [facility]
--- NOTE | 2024-04-13 12:16 | ED.VIS.CHEST ---
HPI History of Present Illness Chief Complaint: Chest Pain Informant: patient and spouse/S.O. Onset/Context/Timing Onset: Today and Hours Timing: Continuous Quality: Positive for Aching Location: Substernal Current Severity: Mild Maximum Severity: Mild Worsened By: Nothing Relieved By: Nothing Associated Symptoms: Negative for Nausea, Vomiting, Diaphoresis, Dyspnea, Cough, Fever, Lightheadedness, Acid Reflux or Palpitations Narrative Narrative: 58-year-old male history of anxiety, skin cancer and hypertension. States they were driving from [place] back to [place] where they live and he had sudden onset of chest discomfort. He had a similar episode of this 45 days ago. Was taken to [facility] emergency department. Had a negative cardiac workup according to him. He was treated with morphine for his chronic back pain and Ativan for his anxiety and felt better. He has no cardiac history. He has had no recent stress test or heart catheterization. No history of DVT or or PE or recent risk factors. Prior Similar Symptoms: Yes Recent Illness/Hospitalization: No CVD Risk Factors: Positive for Hypertension PE Risk Factors: Negative for Recent Travel/Surgery, Recent Immobilization, Prior DVT or PE, Cancer or OCP + Smoking + >/=35 TAD Risk Factors: Negative for Marfan's Syndrome [facility] Medical History Degenerative disc disease, thoracic Compound fracture Torn rotator cuff Tendonitis Carpal tunnel syndrome Fall Anxiety Hx of testicular cancer HTN (hypertension) Melanoma Home Medications ?Medication ?Instructions ?Recorded ?Last Taken ?Type ondansetron 4 mg disintegrating 4 mg PO Q8H PRN PRN Nausea #10 tabs 01/20/15 Unknown Rx tablet gabapentin 300 mg capsule 300 mg PO TID 05/12/22 Unknown History lisinopril 10 mg tablet 20 mg PO DAILY 05/12/22 Unknown History duloxetine 30 mg capsule,delayed 30 mg PO BID 05/10/23 Unknown History release ketoconazole 2 % topical cream 1 applic topical PRN 05/10/23 Unknown History oxycodone 5 mg tablet 5 mg PO Q6H PRN PRN pain 05/10/23 Unknown History oxycodone-acetaminophen 5 mg-325 1 tab PO Q6H PRN PRN Pain 1 day #2 05/10/23 Unknown Rx mg tablet TABLETS quetiapine 200 mg tablet 200 mg PO QHS PRN PRN sleep 05/10/23 Unknown History sumatriptan succinate 6 mg/0.5 mL 6 mg subcut PRN headache 05/10/23 Unknown History subcutaneous pen injector hydrocodone-acetaminophen 5-325mg 1 tab PO Q6H PRN PRN Pain 3 days 05/20/23 Unknown Rx 5mg-325mg #10 TABLETS Allergy/AdvReac Type Severity Reaction Status Date / Time tramadol Allergy Mild Hives Verified 04/13/24 11:49 Surgical History History of carpal tunnel surgery Social History household members: significant other Smoking Status: Never smoker alcohol intake: current alcohol intake frequency: a few times a week ROS ROS ED ROS Narrative Denies recent illness. Nonexertional chest pain today. Constitutional Constitutional ED: Denies chills or fever(s) Eyes Eyes: Reports none ENT ENT ED: Denies ear pain Cardiovascular Cardiovascular: Reports as per HPI and chest pain; Denies palpitations or racing heartbeat Respiratory/Chest Respiratory/Chest: Denies cough or dyspnea Gastrointestinal Gastrointestinal: Denies abdominal pain Genitourinary Genitourinary ED: Denies dysuria or hematuria Musculoskeletal Musculoskeletal: Reports back pain; Denies arthralgias Integumentary Denies abscess or Abrasions Neurologic Neurologic: Denies headache(s) Psychiatric Psychiatric: Reports anxiety Endocrine Endocrinology: Denies cold intolerance Hematologic/Lymphatic Hematologic/Lymphatic: Denies easy bleeding, easy bruising or lymphadenopathy Allergic/Immunologic Allergic/Immunologic ED: Denies mouth swelling, tongue swelling or urticaria EXAM Physical Exam Narrative Exam Narrative: 58-year-old male vital signs are stable afebrile he does not look septic or toxic. He is obviously anxious. Pulse ox 96% on room air no hypoxia. present in the room. H EENT exam pupils round reactive light. Normal speech. No facial droop. Neck nontender no JVD. Lungs clear to auscultation bilaterally. Heart regular rate and rhythm rate about 65 no murmur. Chest wall and ribs nontender. No ecchymosis or bruising. No subcu air nor crepitance. Abdomen soft nontender. Normal bowel sounds. Back nontender. Moving all 4 extremities. Nontender. He is chronic lymphedema bilaterally. Equal symmetrical. Calves nontender. Normal american sign language interpreter strength. Equal symmetrical radial pulses. Back nontender. Neurologically is awake alert answering questions following commands. Const Vital Signs: 04/13/24 11:48 04/13/24 11:49 04/13/24 12:01 Temperature 97.9 F Temperature Source Oral Pulse Rate 77 Respiratory Rate 22 H Respiratory Effort Normal Non-Labored Blood Pressure 147/95 H Blood Pressure Mean 112 Pulse Ox 96 Oxygen Delivery Method Room Air Room Air 04/13/24 12:48 04/13/24 14:00 04/13/24 15:00 Temperature Temperature Source Pulse Rate 53 L 64 51 L Respiratory Rate 16 16 15 Respiratory Effort Blood Pressure 145/84 H 150/89 H 146/91 H Blood Pressure Mean 104 109 109 Pulse Ox 95 100 93 Oxygen Delivery Method Room Air Room Air Positive well nourished and well developed; Negative for cachectic, contractures or unkempt General Appearance ED: well developed and NAD; Negative for unkempt, cachectic or contractures Nutritional Appearance: Negative for cachectic HEENT Reports moist mucous membranes normocephalic and atraumatic; Negative for trauma or tenderness Eyes PERRL and EOMs intact bilaterally Neck no lymphadenopathy, supple and no JVD Chest Wall inspection of chest normal and palpation of chest normal Resp normal respiratory effort and clear to auscultation bilaterally Cardio regular rate, regular rhythm, S1 normal heart sound, S2 normal heart sound and no murmurs Peripheral Pulses: pulses 2+ throughout GI normal to inspection, nondistended, normoactive bowel sounds, soft to palpation, non-tender, non-distended and no masses Back/Spine no CVA tenderness and no thoracic nor lumbar tenderness Extremity Negative for normal to inspection Extremity Narrative: Bilateral chronic lymphedema. General Extremety ED: Yes edema; Negative for pulses abnormal or tenderness General Extremity: edema; Negative for pulses abnormal Neuro oriented x3 and CN's II-XII intact bilaterally Sensorium / Orientation: awake, alert, oriented to person, oriented to place and oriented to time; Negative for lethargic or stuporous Motor Exam: strength 5/5 throughout Psych mental status grossly normal Appearance: Negative for unkempt Mood & Affect: anxious Skin no rashes or lesions noted and no wounds Rashes: No rashes noted Trauma: Negative for abrasion Heart Score History: Slightly/Non-Suspicious ECG: Normal Age: >45 - <65 years Risk Factors: 1 or 2 Risk Factors Troponin: </= Normal Limit Score: 2 MDM MDM MDM Narrative Medical decision making narrative: 58-year-old male with atypical nonexertional chest pain I think this may be anxiety/panic attack. Undergo cardiac workup. He will be given Ativan and morphine for his chronic back pain and reassess. Repeat exam patient is doing well at 1:45 PM. Pain is gone. We are awaiting his 2-hour troponin 1 6 drawn and returns that is normal will be discharged to home. Repeat exam at 3:05 PM patient doing well. We went over his second 2-hour troponin. He will be discharged to home. Treated his anxiety attack. History & Record Review Discussion w/independent historian: Patient and Family Additional record(s) reviewed:: Prior inpatient record, Prior outpatient record, Prior ED visit and Prior labs Lab Data Attestation: I reviewed the patient's lab results. Lab results narrative: Chest x-ray unremarkable. CBC white count of 5. H&H 13 and 38. Platelets 3 of 6. Electrolytes show gap of 13. Normal BUN and creatinine. Glucose 96. Initial troponin less than 6. 2-hour troponin less than 6 also. Labs: Laboratory Results - last 24 hr 04/13/24 04/13/24 11:57 14:07 WBC 5.8 RBC 4.17 L Hgb 13.2 Hct 38.9 L MCV 93.3 MCH 31.7 MCHC 33.9 RDW Std Deviation 41.9 RDW Coeff of Marlee 12.3 Plt Count 306 MPV 9.7 Immature Gran % (Auto) 0.900 Neut % (Auto) 55.2 Lymph % (Auto) 27.9 Bland % (Auto) 12.2 H Eos % (Auto) 2.9 Baso % (Auto) 0.9 Absolute Neuts (auto) 3.2 Absolute Lymphs (auto) 1.62 Nucleated RBC % 0 Sodium 140 Potassium 4.4 Chloride 107 Carbon Dioxide 20.1 L Anion Gap 13 BUN 14 Creatinine 1.13 Estim Creat Clear Calc 85.26 Est GFR (MDRD) Non-Af 76 BUN/Creatinine Ratio 12.6 Glucose 96 Calcium 9.8 Troponin T High Sens < 6 Troponin T Hi Sens 2 Hr < 6 Radiography Chest X-Ray - ED: 1 View, Read by ED Physician, Read by Radiologist, Heart, Lungs, Mediastinum, Bony Structures, No Acute Disease and Chronic Changes Diagnostic Testing: Clinical Impression(s) from Imaging Studies Chest X-Ray 04/13/24 12:01 IMPRESSION: NEGATIVE SINGLE VIEW OF THE CHEST. Reading Location: [facility] Chest x-ray, portable, single view interpreted by myself and radiologist shows no acute abnormality. Normal cardiac silhouette. Normal lung styles. Chronic changes. Rhythm Strip Rhythm Strip: Sinus Rhythm Rate: 62 Ectopy: None EKG Initial EKG: Attestation: I personally reviewed and interpreted this EKG as follows: Interpretation: Sinus Rhythm and No Acute Injury Pattern Comments: Normal sinus rhythm rate of 62 no acute signs of VT nor ischemia. Discharge Plan Triage Chief Complaint: Chest Pain ED Provider: Cam Tovar Dx/Rx/DC Orders Clinical Impression: Anxiety, Chest pain, History of hypertension, Chronic back pain Instructions: ED Anxiety Reaction, ED Chest Pain, Noncardiac Prescriptions: No Action ondansetron 4 MG tablet 4 mg PO Q8H PRN PRN (Reason: Nausea) Qty: 10 0RF lisinopril 10 mg Tablet 20 mg PO DAILY gabapentin 300 mg Capsule 300 mg PO TID duloxetine 30 mg capsule,delayed release(DR/EC) 30 mg PO BID ketoconazole 2 % cream 1 applic topical PRN oxycodone 5 mg tablet 5 mg PO Q6H PRN PRN (Reason: pain) quetiapine 200 mg tablet 200 mg PO QHS PRN PRN (Reason: sleep) sumatriptan succinate 6 mg/0.5 mL pen injector 6 mg subcut PRN oxycodone-acetaminophen [oxycodone-acetaminophen] 5-325 mg tablet 1 tab PO Q6H PRN PRN (Reason: Pain) 1 Days Qty: 2 0RF hydrocodone-acetaminophen [hydrocodone-acetaminophen] 5-325 mg tablet 1 tab PO Q6H PRN PRN (Reason: Pain) 3 Days Qty: 10 0RF Primary Care Provider: Care Physician,No Primary Referrals: Town Doctor,Out of [Non-Staff] - Activity Restrictions/Additional Instructions: All your tests are normal. I think this was secondary to anxiety attack. Follow-up with your doctor as needed. Print Language: Armenian Disposition Disposition: Home, Self Care
[2024-04-13 12:24] LABS: Absolute Lymphocyte Count 1.62 X10^3/uL (0.83-4.51); Absolute Neutrophil Count 3.2 X10^3/uL (2.0-7.7); Basophil# 0.05 X10^3/uL; Basophil% 0.9 % (0-1); Eosinophil# 0.17 X10^3/uL; Eosinophils% 2.9 % (0-5); Hematocrit 38.9 % (40-54); Hemoglobin 13.2 g/dL (13.0-16.5); Lymphocyte # 1.62 X10^3/ul (0.83-4.51); Lymphocyte % 27.9 % (19-41); Mean Corp Hgb Conc 33.9 g/dL (32-36); Mean Corpuscular Hgb 31.7 pg (27.0-32.0); Mean Corpuscular Volume 93.3 fL (80-94); Mean Platelet Vol. 9.7 fl (6.2-12.0); Monocyte# 0.71 X10^3/uL; Monocyte% 12.2 % (0-10); NRBC Flagged by Analyzer 0 % (0-5); Neutrophil # 3.21 X10^3/uL (2.7-7.7); Neutrophil % 55.2 % (47-70); Platelet Count 306 K/mm3 (150-450); RBC Distribution Width CV 12.3 % (11.6-14.6); RBC Distribution Width SD 41.9 fl (35.1-43.9); Red Blood Count 4.17 M/mm3 (4.6-6.2); White Blood Count 5.8 K/mm3 (4.4-11.0)
[2024-04-13] MEDS: Morphine 4 MG/ML Syringe IV (12:25)
[2024-04-13] MEDS: Ondansetron 4 MG/2 ML Vial IV (12:25)
[2024-04-13] MEDS: Lorazepam 2 MG/ML WCH Syringe 1 MG IV (12:25)
[2024-04-13 12:48] VITALS: BP 145/84; PULSE 53; RESP 16; O2SAT 95
[2024-04-13 13:17] LABS: Anion Gap 13 (5-15); BUN 14 mg/dL (4-19); BUN/Creat Ratio 12.6 RATIO (10-20); Calcium,Total 9.8 mg/dL (7.6-11.0); Carbon Dioxide 20.1 mmol/L (21.0-32.0); Chloride 107 mmol/L (98-108); Creatinine, Serum 1.13 mg/dL (0.70-1.20); EST Glomerular Filtration Rate 76 (>60); Estimated Creatinine Clearance 85.26 ml/min (50-250); Glucose 96 mg/dL (70-99); Potassium 4.4 mmol/L (3.3-5.1); Sodium Level 140 mmol/L (133-145); Troponin T High Sensitivity < 6 ng/L (<=22)
[2024-04-13 14:00] VITALS: BP 150/89; PULSE 64; RESP 16; O2SAT 100
[2024-04-13 14:35] LABS: Troponin T High Sens 2 HR < 6 ng/L (<=22)
[2024-04-13 15:00] VITALS: BP 146/91; PULSE 51; RESP 15; O2SAT 93
[2024-04-13 15:15] VITALS: BP 146/91; PULSE 58; RESP 16; TEMP 36.9; O2SAT 98
[2024-04-13] MEDS: Ketorolac 30 MG/ML Syringe IV (15:20)
== END 2024-04-13 15:26 | disposition home or self-care (01) ==
PROVIDERS: Emergency Provider Emergency Medicine; Visit Provider Emergency Medicine
DX: F41.9 Anxiety disorder, unspecified (principal); R07.9 Chest pain, unspecified; G89.29 Other chronic pain; M54.9 Dorsalgia, unspecified; I10 Essential (primary) hypertension; I89.0 Lymphedema, not elsewhere classified
CPT/HCPCS: 71045; 80048; 84484; 85025; 93005; 96374; 96375; 99283; A4216; J2405